=== PATIENT | female | born 1975 | race American Indian/Alaskan Native ===

== ENCOUNTER 2023-05-18 11:17 | Outpatient (OUT) | payer OTHER, SELFPAY ==
--- NOTE | 2023-05-18 11:19 | XR_ITS ---
The [address] [address] Patient Name: IAM ROQUE MRN: [id number] date: 1975 Sex: F Assigned Patient Location: [facility] Current Patient Location: [facility] Accession/Order Number: [id number] Exam Date: 05/18/2023 11:25 Report Date: 05/18/2023 11:41 At the request of: JEAN CLAUDE LOPEZ Procedure: XR ankle RT min 3V PROCEDURE: XR ankle RT min 3V HISTORY: RIGHT ANKLE PAIN COMPARISON: XR ankle right 04/27/2023 FINDINGS: BONES:Prosthetic replacement detail is. No hardware fracture or change in alignment. No bone fracture dislocation. SOFT TISSUES:Moderate soft tissue swelling. EFFUSION:None visible. OTHER: Negative. IMPRESSION: 1. Stable surgical changes and moderate soft tissue swelling. Electronically authenticated by: SCOOBY JIMÉNEZ Date: 05/18/2023 11:41
== END 2023-05-18 11:18 ==
LOC: RAD 11:17
PROVIDERS: PCP Student in an Organized Health Care Education/Training Program; Visit Provider Student in an Organized Health Care Education/Training Program
DX: M19.071 Primary osteoarthritis, right ankle and foot (principal)
CPT/HCPCS: 73610

== ENCOUNTER 2023-06-15 11:48 | Outpatient (OUT) | payer OTHER, SELFPAY ==
--- NOTE | 2023-06-15 11:41 | XR_ITS ---
[address] [address] Patient Name: IAM ROQUE MRN: [id number] date: 1975 Sex: F Assigned Patient Location: [facility] Current Patient Location: [facility] Accession/Order Number: [id number] Exam Date: 06/15/2023 11:41 Report Date: 06/15/2023 18:56 At the request of: BRIAN BRANNON Procedure: XR ankle RT min 3V PROCEDURE: XR ankle RT min 3V COMPARISON: HISTORY: RIGHT ANKLE PAIN FINDINGS: BONES:Stable talus arthroplasty. No acute fracture or dislocation or mechanical failure SOFT TISSUES:Moderate diffuse soft tissue swelling EFFUSION:Joint effusion OTHER: Negative. XR/XR ankle RT min 3V IMPRESSION: Soft tissue swelling. Electronically authenticated by: STEVEN THOMSON Date: 06/15/2023 18:56
== END 2023-06-15 11:49 | disposition home or self-care (01) ==
LOC: RAD 11:48
PROVIDERS: PCP Student in an Organized Health Care Education/Training Program; Visit Provider Podiatrist Foot & Ankle Surgery
DX: M87.071 Idiopathic aseptic necrosis of right ankle (principal)
CPT/HCPCS: 73610

== ENCOUNTER 2023-09-14 13:05 | Outpatient (OUT) | payer OTHER, SELFPAY ==
--- NOTE | 2023-09-14 | XR_ITS ---
The [address] [address] Patient Name: IAM ROQUE MRN: [id number] date: 1975 Sex: F Assigned Patient Location: [facility] Current Patient Location: [facility] Accession/Order Number: [id number] Exam Date: 09/14/2023 13:08 Report Date: 09/14/2023 14:59 At the request of: BRIAN BRANNON Procedure: XR ankle RT min 3V EXAM: XR ankle RT min 3V HISTORY: RIGHT ANKLE PAIN COMPARISON: This study was compared to the prior one dated 06/15/2023 There is status post right talus replacement. The alignment is anatomical. There is no acute fracture or dislocation. Stable few bone fragments, likely postoperative. There is increased intra-articular joint effusion in the talotibial joint. The interarticular joint spaces are preserved. Circumferential soft tissue swelling is noted. XR/XR ankle RT min 3V IMPRESSION: No acute finding. No significant interval change. Electronically authenticated by: SOFIA GOMEZ Date: 09/14/2023 14:59
== END 2023-09-14 13:06 | disposition home or self-care (01) ==
LOC: RAD 13:05
PROVIDERS: Visit Provider Podiatrist Foot & Ankle Surgery
DX: M24.571 Contracture, right ankle (principal)
CPT/HCPCS: 73610

== ENCOUNTER 2024-03-15 13:07 | Outpatient (OUT) | payer OTHER, SELFPAY ==
--- NOTE | 2024-03-15 | XR_ITS ---
The [address] [address] Patient Name: IAM ROQUE MRN: [id number] date: 1975 Sex: F Assigned Patient Location: Current Patient Location: Accession/Order Number: [id number] Exam Date: 03/15/2024 13:10 Report Date: 03/16/2024 08:06 At the request of: BRIAN BRANNON Procedure: XR ankle RT min 3V PROCEDURE: XR ankle RT min 3V HISTORY: RIGHT ANKLE PAIN COMPARISON: XR ankle right 09/14/2023 FINDINGS: BONES:Prior prosthetic replacement of the talus without evidence of hardware fracture or displacement. No bone fracture dislocation. Stable heterotopic bone formation distal to the medial malleolus. SOFT TISSUES:Anterior and lateral soft tissue thickening. EFFUSION:None visible. OTHER: Negative. XR/XR ankle RT min 3V IMPRESSION: 1. Total talus replacement without evidence of hardware failure or acute bone abnormality. 2. Thickened soft tissue anteriorly and laterally, but less than previously seen. Electronically authenticated by: SCOOBY JIMÉNEZ Date: 03/16/2024 08:06
== END 2024-03-15 13:08 | disposition home or self-care (01) ==
LOC: EC 13:07
PROVIDERS: Visit Provider Podiatrist Foot & Ankle Surgery
DX: M25.571 Pain in right ankle and joints of right foot (principal)
CPT/HCPCS: 73610

== ENCOUNTER 2024-04-13 09:58 | Outpatient (OUT) | payer OTHER, SELFPAY ==
--- NOTE | 2024-04-13 10:03 | ECG_ITS ---
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
--- NOTE | 2024-04-13 10:25 | XR_ITS ---
The [address] [address] Patient Name: IAM ROQUE MRN: [id number] date: 1975 Sex: F Assigned Patient Location: [facility] Current Patient Location: [facility] Accession/Order Number: [id number] Exam Date: 04/13/2024 10:44 Report Date: 04/13/2024 10:56 At the request of: BRIAN BRANNON Procedure: XR chest 2V PROCEDURE: XR chest 2V DATE: 04/13/2024 9:44 AM CDT COMPARISONS: 03/23/2023 CLINICAL INDICATION: 48 years Female Preop exam FINDINGS: The cardiomediastinal silhouette and pulmonary vasculature are within normal limits. The lungs are clear. There is no evidence of pleural effusion or pneumothorax. XR/XR chest 2V IMPRESSION: Chest radiograph is within normal limits. Electronically authenticated by: GALA LOPEZ Date: 04/13/2024 10:56
--- NOTE | 2024-04-13 10:45 | PM.PRESUREVA ---
History of Present Illness History of Present Illness Chief complaint: right ankle specified joint disorders Narrative: Patient presents for preadmission testing. The patient states she had a right ankle replacement in March 2023, she was doing well, but recently has noticed an increase in pain with certain movements of her ankle. She states the pain is relieved by rest, she is not currently taking any pain medication, she denies numbness, tingling, weakness, or any other complaints. Review of Systems ROS Narrative REVIEW OF SYSTEMS: Negative except as stated in HPI, ten or more systems reviewed. Constitutional: No fever , chills, weakness ENT: No sore throat or epistaxis Cardiovascular: No edema, chest pain, palpitations, or activity intolerance Respiratory: No shortness of breath, cough, or wheezing Gastrointestinal: No abdominal pain, constipation, diarrhea, or vomiting Genitourinary: No dysuria or hematuria Neurological: No numbness, tingling, weakness, or headache Psychiatric: No mood changes. [facility] Medical History (Updated 04/13/24 @ 10:49 by Jess Will NP) Arthritis of right ankle ?M19.071 - Primary osteoarthritis, right ankle and foot (ICD-10) Electronic cigarette use ?Z78.9 - Other specified health status (ICD-10) Ankle pain ?M25.579 - Pain in unspecified ankle and joints of unspecified foot (ICD-10) Other specified joint disorders, right ankle and foot ?M25.871 - Other specified joint disorders, right ankle and foot (ICD-10) GERD (gastroesophageal reflux disease) ?K21.9 - Gastro-esophageal reflux disease without esophagitis (ICD-10) Shingles ?B02.9 - Zoster without complications (ICD-10) Arthritis ?M19.90 - Unspecified osteoarthritis, unspecified site (ICD-10) Anemia ?D64.9 - Anemia, unspecified (ICD-10) Menopause ?Z78.0 - Asymptomatic menopausal state (ICD-10) Avascular necrosis of right talus ?M87.071 - Idiopathic aseptic necrosis of right ankle (ICD-10) Surgical History (Updated 04/13/24 @ 10:14 by Jess Will NP) History of ankle surgery ?Z98.890 - Other specified postprocedural states (ICD-10) H/O tooth extraction ?K08.409 - Partial loss of teeth, unspecified cause, unspecified class (ICD-10) H/O LEEP ?Z98.890 - Other specified postprocedural states (ICD-10) H/O colonoscopy ?Z98.890 - Other specified postprocedural states (ICD-10) H/O breast biopsy ?Z98.890 - Other specified postprocedural states (ICD-10) 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) ?Z96.669 - Presence of unspecified artificial ankle joint (ICD-10) Family History (Updated 04/13/24 @ 10:10 by Jess Will NP) Other Breast cancer Factor V deficiency Social History (Updated 04/13/24 @ 10:16 by Jess Will NP) Within the past year, how often did you have a drink containing alcohol: 4 or more times a week Within the past year, how many standard drinks containing alcohol did you have on a typical day: 5 or 6 Smoking status: Current every day smoker Do you use any of these nicotine containing products: vaping products Non-prescribed substance use: denies use 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 Highest level of school completed/degree received: high school graduate Meds Home Medications and Allergies Allergies Allergy/AdvReac Type Severity Reaction Status Date / Time No Known Drug Allergies Allergy Verified 04/13/24 10:16 Exam Narrative Exam Narrative: Constitutional: Awake, alert, comfortable, well-appearing, nontoxic, interactive, vital signs as charted Head: Normocephalic, atraumatic Neck: Supple, normal appearance, normal range of motion, no meningeal signs, no lymphadenopathy Respiratory: No respiratory distress, Rhonchi bilateral bases, cleared with cough Cardiovascular: Regular rate and rhythm, strong and regular heart tones Musculoskeletal: Normal gait, no swelling or edema, Anterior right ankle tenderness with palpation, pain is reproducible with ankle dorsiflexion, good capillary refill, sensation intact Skin: No rashes or induration, no lesions, only visible skin inspected Neuro: No neurological deficits, normal sensation Psychiatric: Oriented ?3, normal affect. Assessment and Plan Assessment and Plan (1) Avascular necrosis of right talus: (2) Other specified joint disorders, right ankle and foot: (3) Ankle pain: (4) Arthritis of right ankle: Plan Right ankle arthroscopy with possible arthrotomy scheduled with Dr. Flores April 27, 2024.
[2024-04-13 11:06] LABS: Basophils Absolute Auto 0.1 10^3/uL (0.0-0.1); Basophils Percent Auto 1.3 % (0.2-2.0); Eosinophils Absolute Auto 0.2 10^3/uL (0.0-0.7); Eosinophils Percent Auto 2.7 % (0.9-7.0); Hematocrit 48.8 % (36.0-48.0); Hemoglobin 16.6 g/dL (12.0-16.0); Immature Granulocytes Pct Auto 1.4 % (0.0-0.5); Lymphocytes Absolute Auto 2.2 10^3/uL (1.2-3.8); Lymphocytes Percent Auto 31.3 % (20.5-60.0); Mean Corpuscular Hemoglobin 34.5 pg (26.7-34.0); Mean Corpuscular Volume 101.5 fL (81.0-99.0); Mean Platelet Volume 10.4 fL (9.5-13.5); Monocytes Absolute Auto 0.5 10^3/uL (0.3-0.8); Monocytes Percent Auto 6.9 % (1.7-12.0); Neutrophils Absolute Auto 3.9 10^3/uL (1.4-6.5); Neutrophils Percent Auto 56.4 % (43.0-75.0); Platelet Count 250 10^3/uL (150-450); Red Blood Count 4.81 10^6/uL (4.20-5.40); Red Cell Distribution Width 13.6 % (11.0-15.0); White Blood Count 6.9 10^3/uL (4.0-11.0)
== END 2024-04-13 09:59 | disposition home or self-care (01) ==
LOC: PST 09:58
PROVIDERS: Visit Provider Podiatrist Foot & Ankle Surgery
DX: Z01.810 Encounter for preprocedural cardiovascular examination (principal); Z01.812 Encounter for preprocedural laboratory examination; Z01.818 Encounter for other preprocedural examination; M25.871 Other specified joint disorders, right ankle and foot; M19.071 Primary osteoarthritis, right ankle and foot
CPT/HCPCS: 71046; 85025; 93005; G0463

== ENCOUNTER 2024-04-28 09:31 | Observation (INO) | payer OTHER, SELFPAY ==
[2024-04-13 10:43] VITALS: BP 102/70; PULSE 94; TEMP 36.3; O2SAT 96; BMI 26.5
[2024-04-27] VITALS (38 sets, daily range): BP systolic 92–143; BP diastolic 63–83; PULSE 69–104; TEMP 36.4–36.7; O2SAT 92–100; BMI 26.5
--- OUTSIDE RECORDS SUMMARY | 2024-04-27 09:18 | XMS_ITS | CCD ---
Author Organization [facility] Care Team Providers Care Welding Process Specialist Name Role Phone None, No PCP Unavailable Unavailable Unavailable Unavailable Renata, Dr. Wahl Attending Unavailable Feighan, Dr. Sarthak Anderson Attending Rosario PENNY, Dr. VISH MERCADO Referring Genavai lable Unavailable Primary Care Provider Bruce THOMSON, DR STEVEN Khan Consulting Unavailable BRIAN BRANNON Admitting Unavailable BRIAN BRANNON Attending Unavailable BRIAN BRANNON Consulting Unavailable BRIAN BRANNON Consulting Unavailable BRIAN BRANNON Admitting Unavailable BRIAN BRANNON Attending Unavailable JASMINE ARENAS Consulting Unavailable VALENCIA, STUART Consulting Unavailable HOY ., DR ALONZO Admitting Unavailable HOY ., DR ALONZO Attending Unavailable HOY ., DR ALONZO Consulting Unavailable TINO, DR SCOOBY De Jesus Consulting Unavailable BRIAN BRANNON Consulting Unavailable BRIAN BRANNON Procedure Practitioner Unajudy LOPEZ .JEAN CLAUDE Consulting Unavailable VISH PALMER Consulting Unavailable BRIAN SMITH Unavailable BRIAN BRANNON Admitting Unavailable TINO, DR SCOOBY De Jesus Consulting Unavailable BRIAN BRANNON Attending Unavailable BRIAN BRANNON Consulting Unavailable TINO, DR SCOOBY De Jesus Consulting Unavailable BLESSING BRANDON Admitting Unavailable BLESSING BRANDON Attending Unavailable BLESSING BRANDON Consulting Unavailable KOLE, NICKIE Primary Care Unavailable JESSICAJEAN CLAUDE Referring Unavailable SARTHAK HERNANDEZ Referring Unavailable KOLE, NICKIE Primary Care Unavailable JEAN CLAUDE LOPEZ Referring Unavailable KOLE, NICKIE Primary Care Unavailable JEAN CLAUDE LOPEZ Referring Unavailable JEAN CLAUDE LOPEZ Referring Unavailable KOLE, NICKIE Primary Care Unavailable JEAN CLAUDE LOPEZ Referring Unavailable KOLE, NICKIE Primary Care Unavailable JESSICAJEAN CLAUDE Referring Unavailable KOLE, NICKIE Primary Care Unavailable JEAN CLAUDE LOPEZ Referring Unavailable KOLE, NICKIE Primary Care Unavailable KOLE, NICKIE Primary Care Unavailable JEAN CLAUDE LOPEZ Referring Unavailable KOLE, NICKIE Primary Care Unavailable JEAN CLAUDE LOPEZ Referring Unavailable KOLE, NICKIE Primary Care Unavailable JEAN CLAUDE LOPEZ Referring Unavailable KOLE, NICKIE Primary Care Unavailable JEAN CLAUDE LOPEZ Referring Unavailable Nickie Mortensen MD Primary Care Provider Medications Completed/Discontinued Medications Medication Drug Class(es) Dates Sig (Normalized) Sig (Original) celecoxib 200 mg oral capsule (5 sources) Nonsteroidal Anti-inflammatory Drug Start: 12-09-2022 take 1 capsule by mouth once daily as needed Celecoxib 200 MG Oral Capsule TAKE 1 CAPSULE DAILY NEEDED. Quantity: 30 Refills: 2 Ordered: 09-Dec-2022 Vish Penny MD Start : 09-Dec-2022 Active omeprazole 20 mg / sodium bicarbonate 1100 mg oral capsule (3 sources) Proton Pump Inhibitor Start: 12-28-2022 Zegerid 20-1100 MG Oral Capsule Quantity: 0 Refills: 0 Ordered: 28-Dec-2022 DO Start : 28-Dec-2022 Active Problems Active Problems Problem Classification Problem Date Documented Date Episodic/Chronic Deficiency and other anemia (1 source) Anemia, unspecified; Translations: [ANEMIA UNSPECIFIED] Onset: 04-13-2023 Episodic Esophageal disorders (1 source) Gastro-esophageal reflux disease without esophagitis; Translations: [GERD WITHOUT ESOPHAGITIS] Onset: 04-13-2023 Chronic Osteoarthritis (15 sources) Primary osteoarthritis, right ankle and foot; Translations: [Disorder of ankle joint] Onset: 12-09-2022 Chronic Other acquired deformities (3 sources) Contracture, right ankle; Translations: [CONTRACTURE RIGHT ANKLE] Onset: 04-13-2023 Chronic Other aftercare (1 source) Other residential (current) drug therapy; Translations: [OTH ENERGY CONSERVATION TECHNICIAN CURRENT DRUG THERAPY] Onset: 04-13-2023 Episodic Other bone disease and musculoskeletal deformities (3 sources) Avascular necrosis of bone; Translations: [Aseptic necrosis of bone, site unspecified] Chronic Other bone disease and musculoskeletal deformities (1 source) Osteochondritis dissecans; 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] Chronic Other bone disease and musculoskeletal deformities (3 sources) Osteonecrosis, unspecified; Translations: [OSTEONECROSIS UNSPECIFIED] Onset: 02-17-2023 Chronic Other bone disease and musculoskeletal deformities (2 sources) Idiopathic aseptic necrosis of right ankle; Translations: [IDIOPATH ASEPTIC NECROSIS RT ANKLE] Onset: 03-27-2023 Chronic Other bone disease and musculoskeletal deformities (1 source) Idiopathic aseptic necrosis of unspecified bone; 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] Onset: 01-06-2023 Chronic Other circulatory disease (1 source) Hypotension, unspecified; Translations: [HYPOTENSION UNSPECIFIED] Onset: 04-13-2023 Episodic Other circulatory disease (4 sources) Other specified symptoms and signs involving the circulatory and respiratory systems; Translations: [OTH SPEC SX SIGNS INVLV CIRC RS] Onset: 02-10-2023 Episodic Other connective tissue disease (3 sources) H/O: arthritis; Translations: [Personal history of arthritis] Episodic Other non-traumatic joint disorders (5 sources) Ankle pain; Translations: [Pain in joint, ankle and foot] Episodic Other non-traumatic joint disorders (1 source) Other instability, right ankle; Translations: [OTHER INSTABILITY RIGHT ANKLE] Onset: 04-13-2023 Episodic Residual codes; unclassified (1 source) Other specified postprocedural states; Translations: [OTH SPECIFIED POSTPROCEDURAL STATES] Onset: 04-13-2023 Episodic Residual codes; unclassified (1 source) Family history of malignant neoplasm of breast; Translations: [FAMILY HX MALIG NEOPLASM OF BREAST] Onset: 04-13-2023 Episodic Residual codes; unclassified (1 source) Family history of diseases of the blood and blood-forming organs and certain disorders involving the immune mechanism; Translations: [FAM HX DZ BLOOD AND BFO D/O IMMUNE [facility]] Onset: 04-13-2023 Episodic Screening and history of mental health and substance abuse codes (1 source) Personal history of nicotine dependence; Translations: [PERSONAL HISTORY OF NICOTINE DEPEND] Onset: 04-13-2023 Episodic Substance-related disorders (1 source) Nicotine dependence, other tobacco product, uncomplicated; Translations: [NICOTINE DEPEND OTH TOB PROD UNCOMP] Onset: 03-27-2023 Chronic Unclassified (1 source) ALCOHOL USE UNSPEC UNCOMPLICATED; Translations: [ALCOHOL USE UNSPEC UNCOMPLICATED] Onset: 04-13-2023 Past or Other Problems Problem Classification Problem Date Documented Da te Episodic/Chronic Other connective tissue disease (1 source) Pain in right foot; Translations: [PAIN IN RIGHT FOOT] Onset: 01-23-2023 Episodic Other connective tissue disease (1 source) Pain in left foot; Translations: [PAIN IN LEFT FOOT] Onset: 01-23-2023 Episodic Other non-traumatic joint disorders (4 sources) Pain in right ankle and joints of right foot; Translations: [PAIN IN RIGHT ANKLE] Onset: 01-20-2023 Episodic Other non-traumatic joint disorders (1 source) Pain in left ankle and joints of left foot; Translations: [PAIN IN LEFT ANKLE] Onset: 01-23-2023 Episodic Results Test Name Value Interpretation Reference Range Facility CBC AUTO DIFFon 04-05-2023 BASO # 0.1 103/ul Normal 0.0-0.1 [facility] Comment on above: Performed By: #### C BC #### [facility] [address] [place] [address] Dr. Lissy Valera Basophils/100 WBC (Bld) 0.8 % Normal 0.2-2.0 [facility] Comment on above: Performed By: #### C BC #### [facility] [address] [place] [address] Dr. Lissy Valera EO # 0.4 103/ul Normal 0.0-0.7 [facility] Comment on above: Performed By: #### C BC #### [facility] [address] [place] [address] Dr. Lissy Valera Eosinophils/100 WBC (Bld) 5.0 % Normal 0.9-7.0 [facility] Comment on above: Performed By: #### C BC #### [facility] [address] [place] [address] Dr. Lissy Valera Erythrocyte distribution width (RBC) [Ratio] 12.5 % Normal 11.0-15.0 [facility] Comment on above: Performed By: #### C BC #### [facility] [address] [place] [address] Dr. Lissy Valera Hematocrit (Bld) [Volume fraction] 40.3 % Normal 36.0-48.0 [facility] Comment on above: Performed By: #### C BC #### [facility] [address] [place] [address] Dr. Lissy Valera Hemoglobin (Bld) [Mass/Vol] 13.1 g/dL Normal 12.0-16.0 [facility] Comment on above: Performed By: #### C BC #### [facility] [address] [place] [address] Dr. Lissy Valera IG # 0.03 10e3/ul Normal 0.00-0.03 [facility] Comment on above: Performed By: #### C BC #### [facility] [address] [place] [address] Dr. Lissy aVlera IG % 0.4 % Normal 0.0-0.5 [facility] Comment on above: Performed By: #### C BC #### [facility] [address] [place] [address] Dr. Lissy Valera LYMPH # 3.0 103/ul Normal 1.2-3.8 [facility] Comment on above: Performed By: #### C BC #### [facility] [address] [place] [address] Dr. Lissy Valera Lymphocytes/100 WBC (Bld) 36.2 % Normal 20.5-60.0 [facility] Comment on above: Performed By: #### C BC #### [facility] [address] [place] [address] Dr. Lissy Valera MANUAL DIFF REQ NO Normal [facility] Comment on above: Performed By: #### C BC #### [facility] [address] [place] [address] Dr. Lissy Valera MCH (RBC) [Entitic mass] 33.2 pg Normal 26.7-34.0 [facility] Comment on above: Performed By: #### C BC #### [facility] [address] [place] [address] Dr. Lissy Valera MCHC (RBC) [Mass/Vol] 32.5 g/dL Normal 29.9-35.2 [facility] Comment on above: Performed By: #### C BC #### [facility] [address] [address] [address] Lissy Valera MCV (RBC) [Entitic vol] 102.3 fL Critically high 81.0-99.0 [facility] Comment on above: Performed By: #### C BC #### [facility] [address] [address] [address] Lissy Valera MONO # 0.8 103/ul Normal 0.3-0.8 [facility] Comment on above: Performed By: #### C BC #### [facility] [address] [address] [address] Lissy Valera Monocytes/100 WBC (Bld) 9.7 % Normal 1.7-12.0 [facility] Comment on above: Performed By: #### C BC #### [facility] [address] [address] [address] Lissy Valera NEUT # 4.0 103/ul Normal 1.4-6.5 [facility] Comment on above: Performed By: #### C BC #### [facility] [address] [address] [address] Lissy Valera Neutrophils/100 WBC (Bld) 47.9 % Normal 43.0-75.0 [facility] Comment on above: Performed By: #### C BC #### [facility] [address] [address] [address] Lissy Valera Platelet mean volume (Bld) [Entitic vol] 9.4 fL Critically low 9.5-13.5 [facility] Comment on above: Performed By: #### C BC #### [facility] [address] [address] [address] Lissy Valera PLT 270 103/ul Normal 150-450 [facility] Comment on above: Performed By: #### C BC #### [facility] [address] [place] [address] Dr. Lissy Valera RBC 3.94 106/ul Critically low 4.20-5.40 [facility] Comment on above: Performed By: #### C BC #### [facility] [address] [address] [address] Lissy Valera WBC 8.3 103/ul Normal 4.0-11.0 [facility] Comment on above: Performed By: #### C BC #### [facility] [address] [address] [address] Lissy Valera POINT OF CARE GLUCOSEon 05-0 Glucose [Mass/Vol] 137 mg/dL Critically high 74-[address] [facility] Comment on above: Performed By: #### P OCGLUC ####[facility] [id number] [id number]. Lissy Valera Glucose [Mass/Vol] 110 mg/dL Critically high -[address] [facility] Comment on above: Performed By: #### P OCGLUC ####[facility] [address] [address]Dr. Lsisy Valera CBC AUTO DIFFon 03-23-2023 BASO # 0.1 103/ul Normal 0.0-0.1 [facility] Comment on above: Performed By: #### C BC #### [facility] [address] [place] [address] Dr. Lissy Valera Basophils/100 WBC (Bld) 0.8 % Normal 0.2-2.0 [facility] Comment on above: Performed By: #### C BC #### [facility] [address] [place] [address] Dr. Lissy Valera EO # 0.3 103/ul Normal 0.0-0.7 [facility] Comment on above: Performed By: #### C BC #### [facility] [address] [place] [address] Dr. Lissy Valera Eosinophils/100 WBC (Bld) 3.6 % Normal 0.9-7.0 [facility] Comment on above: Performed By: #### C BC #### [facility] [address] [place] [address] Dr. Lissy Valera Erythrocyte distribution width (RBC) [Ratio] 12.8 % Normal 11.0-15.0 [facility] Comment on above: Performed By: #### C BC #### [facility] [address] [place] [address] Dr. Lissy Valera Hematocrit (Bld) [Volume fraction] 41.0 % Normal 36.0-48.0 [facility] Comment on above: Performed By: #### C BC #### [facility] [address] [place] [address] Dr. Lissy Valera Hemoglobin (Bld) [Mass/Vol] 13.5 g/dL Normal 12.0-16.0 [facility] Comment on above: Performed By: #### C BC #### [facility] [address] [place] [address] Dr. Lissy Valera IG # 0.04 10e3/ul Critically high 0.00-0.03 [facility] Comment on above: Performed By: #### C BC #### [facility] [address] [place] [address] Dr. Lissy Valera IG % 0.4 % Normal 0.0-0.5 [facility] Comment on above: Performed By: #### C BC #### [facility] [address] [place] [address] Dr. Lissy Valera LYMPH # 2.4 103/ul Normal 1.2-3.8 [facility] Comment on above: Performed By: #### C BC #### [facility] [address] [place] [address] Dr. Lissy Valera Lymphocytes/100 WBC (Bld) 26.5 % Normal 20.5-60.0 [facility] Comment on above: Performed By: #### C BC #### [facility] [address] [place] [address] Dr. Lissy Valera MANUAL DIFF REQ NO Normal [facility] Comment on above: Performed By: #### C BC #### [facility] [address] [place] [address] Dr. Lissy Valera MCH (RBC) [Entitic mass] 33.5 pg Normal 26.7-34.0 [facility] Comment on above: Performed By: #### C BC #### [facility] [address] [place] [address] Dr. Lissy Valera MCHC (RBC) [Mass/Vol] 32.9 g/dL Normal 29.9-35.2 [facility] Comment on above: Performed By: #### C BC #### [facility] [address] [address] [address] Lissy Valera MCV (RBC) [Entitic vol] 101.7 fL Critically high 81.0-99.0 [facility] Comment on above: Performed By: #### C BC #### [facility] [address] [place] [address] Dr. Lissy Valera MONO # 0.8 103/ul Normal 0.3-0.8 [facility] Comment on above: Performed By: #### C BC #### [facility] [address] [place] [address] Dr. Lissy Valera Monocytes/100 WBC (Bld) 8.4 % Normal 1.7-12.0 [facility] Comment on above: Performed By: #### C BC #### [facility] [address] [place] [address] Dr. Lissy Valera NEUT # 5.4 103/ul Normal 1.4-6.5 [facility] Comment on above: Performed By: #### C BC #### [facility] [address] [place] [address] Dr. Lissy Valera Neutrophils/100 WBC (Bld) 60.3 % Normal 43.0-75.0 [facility] Comment on above: Performed By: #### C BC #### [facility] [address] [place] [address] Dr. Lissy Valera Platelet mean volume (Bld) [Entitic vol] 9.3 fL Critically low 9.5-13.5 [facility] Comment on above: Performed By: #### C BC #### [facility] [address] [place] [address] Dr. Lissy Valera PLT 295 103/ul Normal 150-450 [facility] Comment on above: Performed By: #### C BC #### [facility] [address] [place] [address] Dr. Lissy Valera RBC 4.03 106/ul Critically low 4.20-5.40 [facility] Comment on above: Performed By: #### C BC #### [facility] [address] [address] [address] Lissy Valera WBC 8.9 103/ul Normal 4.0-11.0 [facility] Comment on above: Performed By: #### C BC #### [facility] [address] [address] [address] Lissy Valera PROF CHEM 8 (BAS METB)on Anion gap [Moles/Vol] 12.7 mmol/L Normal [facility] Comment on above: Performed By: #### B MP ####[facility] [address] [address]DrEmelyn Valera Calcium [Mass/Vol] 9.7 mg/dL Normal 8.5-10.[address] [facility] Comment on above: Performed By: #### B MP ####[facility] [address] [address]DrEmelyn Valera Chloride [Moles/Vol] 103 mmol/L Normal 98-107 [facility] Comment on above: Performed By: #### B MP ####[facility] [address] [address]DrEmelyn Valera CO2 [Moles/Vol] 27.5 mmol/L Normal 21.0-32.0 [facility] Comment on above: Performed By: #### B MP ####[facility] [address] [address]DrEmelyn Valera Creatinine [Mass/Vol] 0.66 mg/dL Normal 0.55-1.02 [facility] Comment on above: Performed By: #### B MP ####[facility] [address] [address]DrEmelyn Valera EGFR-AF CHILEAN >60 Normal >=60 [facility] Comment on above: Performed By: #### B MP ####[facility] [address] [address]DrEmelyn Valera EGFR-NON AF CHILEAN >60 Normal >=60 [facility] Comment on above: Performed By: #### B MP ####[facility] [address] [id number]. Lissy Valera Glucose [Mass/Vol] 98 mg/dL Normal 74-106 [facility] Comment on above: Performed By: #### B MP ####[facility] [address] [id number]. Lissy Soto Potassium [Moles/Vol] 4.2 mmol/L Normal 3.5-5.1 [facility] Comment on above: Performed By: #### B MP ####[facility] [address] [address]Dr. Lissy Soto Sodium [Moles/Vol] 139 mmol/L Normal 136-145 [facility] Comment on above: Performed By: #### B MP ####[facility] [address] [address]Dr. Lissy Soto Urea nitrogen [Mass/Vol] 15.0 mg/dL Normal 7.0-18.0 [facility] Comment on above: Performed By: #### B MP ####[facility] [address] [address]Dr. Lissy Soto Urea nitrogen/Creatinin e [Mass ratio] 22.7 mg/mg Normal [facility] Comment on above: Performed By: #### B MP ####[facility] [address] [id number]. Lissy Valera XR CHEST 2 Von 03-23-2023 XR CHEST 2 V EXAMINATION: XR CHES T 2 V, 03/23/2023 10:30 AM EDT HISTORY: Electronic cigarette user COMPARISON: None. TECHNIQUE: Chest x-ray: Two views. FINDINGS: No focal consolidations or pleural effusions. Cardiomediastinal silhouette is unremarkable. Visualized osseous structures are unremarkable. IMPRESSION: No acute disease. Electronically authenticated by: STUART BIRMINGHAM Date: 2023-03-23 11:19 Normal [facility] CT ANKLE LT WO CONon 023 CT ANKLE LT WO CON EXAMINATION: CT ANKL E RT WO CON, CT ANKLE LT WO CON HISTORY: Avascular necrosis of bone COMPARISON: No relevant comparison available. TECHNIQUE: Multi-planar CT images were created without IV contrast. Dose reduction techniques were achieved by using automated exposure control and/or adjustment of mA and/or kV according to patient size and/or use of iterative reconstruction technique. RIGHT: FINDINGS: BONES: Comminuted intra-articular fracture of the talus with marginal heterotopic ossification sclerosis and extensive nonunion. Partial collapse of the talus is noted. Moderate degenerative changes of the ankle. Permeative pattern of the bones consistent with osteopenia. Mild enthesopathic spurring of the patella at the quadriceps insertion. SOFT TISSUES: Negative. No visible soft tissue swelling. EFFUSION: Ankle joint effusion OTHER: Negative. IMPRESSION: Comminuted complex partially depressed intra-articular fracture of the talus with underlying diffuse osteopenia LEFT: FINDINGS: BONES: No acute fracture, dislocation, avascular necrosis or significant degenerative change. Minimal enthesopathic spurring of the patella at the quadriceps insertion partially visualized. Minimal plantar enthesopathic spurring of the calcaneus. SOFT TISSUES: Negative. No visible soft tissue swelling. EFFUSION: None visible. OTHER: Negative. IMPRESSION: No acute abnormality Electronically authenticated by: STEVEN THOMSON Date: 2023-02-10 10:29 Normal [facility] XR ANKLE TONY MIN 3 VIEWSon 0 01-21-2023 XR ANKLE TONY MIN 3 VIEWS EXAMINATION: XR ANKLE TONY MIN 3 VIEWS, XR FOOT TONY MIN 3 VIEWS HISTORY: Bilateral ankle joint pain ; chronic right ankle pain; possible talus replacement; left side comparison COMPARISON: No relevant comparison available. FINDINGS: RIGHT FINDINGS: BONES: Collapse of the talar dome and increased sclerosis. No appreciable articular surface irregularity of the tibial plafond. Unremarkable calcaneus, talus, midfoot, and forefoot structures. SOFT TISSUES: Moderate soft tissue swelling surrounding the ankle, greatest along lateral aspect. OTHER: Negative. LEFT FINDINGS: BONES: No significant arthropathy or acute abnormality. SOFT TISSUES: No visible soft tissue swelling. OTHER: Negative. IMPRESSION: RIGHT CONCLUSION: Destruction/collapse of the talar dome with intact appearing tibial plafond. LEFT CONCLUSION: Unremarkable left ankle and foot. Electronically authenticated by: SCOOBY JIMÉNEZ Date: 2023-01-21 10:22 Normal [facility] MRI ANKLE RIGHT WO CONTRASTo n 01-08-2023 Avascular necrosis involving the majority of the talus with comminuted intra-articular fracture involving the tibiotalar joint and posterior subtalar joint. Additional findings as detailed. RECOMMENDATIONS: Unavailable [facility] RADIOLOGY EXAMINATION: MRI OF THE RIGHT ANKLE WITHOUT CONTRAST, 01/06/2023 11:31 am TECHNIQUE: Multiplanar multisequence MRI of the right ankle was performed without the administration of intravenous contrast. COMPARISON: None. HISTORY: ORDERING SYSTEM PROVIDED HISTORY: Idiopathic avascular necrosis (HCC) TECHNOLOGIST PROVIDED HISTORY: What is the sedation requirement?->None What reading provider will be dictating this exam?->CRC FINDINGS: SYNDESMOTIC LIGAMENTS: Appear intact. No significant periligamentous edema or interval widening. LATERAL COLLATERAL LIGAMENT COMPLEX: Poorly visualized secondary to motion artifact on the axial sequences. Suspect full-thickness anterior talofibular ligament and calcaneofibular ligament tears as no intact fibers are definitively identified. Clinical correlation is recommended. Posterior tibiofibular ligament appears intact but demonstrates abnormal signal likely representing prior injury scarring or sprain. DELTOID LIGAMENT COMPLEX: Abnormal signal of the deep fibers likely representing ligament sprain and/or low-grade partial tearing. Superficial fibers appear intact. SINUS TARSI AND SPRING LIGAMENT: Sinus tarsi fat is preserved. Spring ligament appears intact. MEDIAL TENDONS: Intact posterior tibial tendon, flexor digitorum and flexor hallucis longus tendons. LATERAL TENDONS: Intact peroneus brevis and longus tendons. EXTENSOR TENDONS: Intact. ACHILLES TENDON: The Achilles tendon is normal in position, morphology and signal. No associated bursitis. PLANTAR FASCIA: Intact and without thickening or nodularity. TARSAL TUNNEL: No space-occupying lesion. BONE MARROW: Comminuted fracture and osseous destruction of the talus with a few scattered areas of mild bone marrow edema but predominantly hypointense T2 signal throughout the majority of the talus. There is significant hypointense T1 signal of the majority of the talus. Fracture extends into the subchondral cortex at the articulation of the tibia with talus as well as into the subchondral cortex at the posterior subtalar joint. There are several areas of cortical collapse of the talar dome. Multiple partial and full-thickness cartilage defects of the talar dome and tibial plafond. OTHER: Small ankle joint effusion with a few scattered loose bodies the largest of which is located anteroinferior to the tip of the lateral malleolus and measures approximately 3.5 cm. A few small scattered patchy foci of bone marrow edema within the distal tibia, calcaneus, and of the midfoot is nonspecific and may be due to disuse osteopenia or altered biomechanics. [facility] RADIOLOGY Nawaf Villanueva DO - 01/08/2023 EXAMINATION: MRI OF THE RIGHT ANKLE WITHOUT CONTRAST, 01/06/2023 11:31 am TECHNIQUE: Multiplanar multisequence MRI of the right ankle was performed without the administration of intravenous contrast. COMPARISON: None. HISTORY: ORDERING SYSTEM PROVIDED HISTORY: Idiopathic avascular necrosis (HCC) TECHNOLOGIST PROVIDED HISTORY: What is the sedation requirement?->None What reading provider will be dictating this exam?->CRC FINDINGS: SYNDESMOTIC LIGAMENTS: Appear intact. No significant periligamentous edema or interval widening. LATERAL COLLATERAL LIGAMENT COMPLEX: Poorly visualized secondary to motion artifact on the axial sequences. Suspect full-thickness anterior talofibular ligament and calcaneofibular ligament tears as no intact fibers are definitively identified. Clinical correlation is recommended. Posterior tibiofibular ligament appears intact but demonstrates abnormal signal likely representing prior injury scarring or sprain. DELTOID LIGAMENT COMPLEX: Abnormal signal of the deep fibers likely representing ligament sprain and/or low-grade partial tearing. Superficial fibers appear intact. SINUS TARSI AND SPRING LIGAMENT: Sinus tarsi fat is preserved. Spring ligament appears intact. MEDIAL TENDONS: Intact posterior tibial tendon, flexor digitorum and flexor hallucis longus tendons. LATERAL TENDONS: Intact peroneus brevis and longus tendons. EXTENSOR TENDONS: Intact. ACHILLES TENDON: The Achilles tendon is normal in position, morphology and signal. No associated bursitis. PLANTAR FASCIA: Intact and without thickening or nodularity. TARSAL TUNNEL: No space-occupying lesion. BONE MARROW: Comminuted fracture and osseous destruction of the talus with a few scattered areas of mild bone marrow edema but predominantly hypointense T2 signal throughout the majority of the talus. There is significant hypointense T1 signal of the majority of the talus. Fracture extends into the subchondral cortex at the articulation of the tibia with talus as well as into the subchondral cortex at the posterior subtalar joint. There are several areas of cortical collapse of the talar dome. Multiple partial and full-thickness cartilage defects of the talar dome and tibial plafond. OTHER: Small ankle joint effusion with a few scattered loose bodies the largest of which is located anteroinferior to the tip of the lateral malleolus and measures approximately 3.5 cm. A few small scattered patchy foci of bone marrow edema within the distal tibia, calcaneus, and of the midfoot is nonspecific and may be due to disuse osteopenia or altered biomechanics. 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 Additional findings as detailed. RECOMMENDATIONS: Unavailable [employer] Phone: MRI ANKLE RIGHT WO CONTRASTO rdered By: Nawaf Villanueva on 01-08-2023 [employer] Phone: MRI ANKLE RIGHT WO CONTRASTo n 01-06-2023 MRI ANKLE RIGHT WO CONTRAST EXAMINATION: MRI OF THE RIGHT ANKLE WITHOUT CONTRAST, 01/06/2023 11:31 am TECHNIQUE: Multiplanar multisequence MRI of the right ankle was performed without the administration of intravenous contrast. COMPARISON: None. HISTORY: ORDERING SYSTEM PROVIDED HISTORY: Idiopathic avascular necrosis (HCC) TECHNOLOGIST PROVIDED HISTORY: What is the sedation requirement?->None What reading provider will be dictating this exam?->CRC FINDINGS: SYNDESMOTIC LIGAMENTS: Appear intact. No significant periligamentous edema or interval widening. LATERAL COLLATERAL LIGAMENT COMPLEX: Poorly visualized secondary to motion artifact on the axial sequences. Suspect full-thickness anterior talofibular ligament and calcaneofibular ligament tears as no intact fibers are definitively identified. Clinical correlation is recommended. Posterior tibiofibular ligament appears intact but demonstrates abnormal signal likely representing prior injury scarring or sprain. DELTOID LIGAMENT COMPLEX: Abnormal signal of the deep fibers likely representing ligament sprain and/or low-grade partial tearing. Superficial fibers appear intact. SINUS TARSI AND SPRING LIGAMENT: Sinus tarsi fat is preserved. Spring ligament appears intact. MEDIAL TENDONS: Intact posterior tibial tendon, flexor digitorum and flexor hallucis longus tendons. LATERAL TENDONS: Intact peroneus brevis and longus tendons. EXTENSOR TENDONS: Intact. ACHILLES TENDON: The Achilles tendon is normal in position, morphology and signal. No associated bursitis. PLANTAR FASCIA: Intact and without thickening or nodularity. TARSAL TUNNEL: No space-occupying lesion. BONE MARROW: Comminuted fracture and osseous destruction of the talus with a few scattered areas of mild bone marrow edema but predominantly hypointense T2 signal throughout the majority of the talus. There is significant hypointense T1 signal of the majority of the talus. Fracture extends into the subchondral cortex at the articulation of the tibia with talus as well as into the subchondral cortex at the posterior subtalar joint. There are several areas of cortical collapse of the talar dome. Multiple partial and full-thickness cartilage defects of the talar dome and tibial plafond. OTHER: Small ankle joint effusion with a few scattered loose bodies the largest of which is located anteroinferior to the tip of the lateral malleolus and measures approximately 3.5 cm. A few small scattered patchy foci of bone marrow edema within the distal tibia, calcaneus, and of the midfoot is nonspecific and may be due to disuse osteopenia or altered biomechanics. 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 Additional findings as detailed. RECOMMENDATIONS: Unavailable Interpreted by: Nawaf Villanueva DO Signed by: Nawaf Villanueva DO 01/08/23 Final result Normal [facility] Radiology Study observation (narrative) [facility] Work Phone: Radiologyon 01-06-2023 MR Ankle - right WO contrast Normal -[facility] Work Phone: Initial Visit (Orthopaedic S urgery)on 12-28-2022 Initial Visit (Orthopaedic Surgery) Diagnoses/Problems Assessed Avascular necrosis (733.40) (M87.00) History of arthritis (V13.4) (Z87.39) No history of surgery Family history of arthritis (V17.7) (Z82.61) : Mother Family history of malignant neoplasm (V16.9) (Z80.9) : Father Current every day smoker (305.1) (F17.200) Ankle arthritis (716.97) (M19.079) 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 : No Is the patient or breast feeding? : No What are the patient's signs and symptoms? : pain SocHx: Current every day smoker Tobacco Use Screening; Status:Complete; Done: 28Dec2022 Chief Complaint Right ankle History of Present Illness 47 female here for right ankle pain. Longstanding issue of pain in the right ankle. Has old notes and MRI reports from previous evaluation in [place]. 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 Is increasing pain and swelling during the day. No diabetes. Non-smoker. Has had increased pain over the past year. On exam: WD/WN thin female A+O X3 NAD No lymphedema Inspection of both feet and ankles show symmetric arches. Moderate swelling about right ankle. Plantigrade foot. Limited ankle and subtalar motion on right. Good motion at midfoot. 5/5 strength in all 4 planes. Sensation intact to LT. Good pulses. Stable anterior drawer. No peroneal subluxation. (-) [place]old. I personally reviewed the following radiographic exams: Previous MRI report of right ankle from over 3 years ago's shows some geographic changes of the talus consistent with avascular necrosis. X-rays of right ankle today shows a very sclerotic talar body with a possible fracture line near the lateral process near the neck. Has a normal talar head towards the talonavicular joint. He has collapse of the tibiotalar and subtalar joint. Assessment: Right talar body avascular necrosis possible stress fracture talar neck. Plan: Discussed nonoperative and operative options in detail. Risk and benefits discussed in detail. All questions answered today. Recovery timeline and expectations discussed in detail. Is not a candidate for ankle replacement because of the involvement of the talar body. Recommend repeat MRI to evaluate the vascularity of the body and possible fracture. Discussed likely hindfoot fusion with the nail with allograft femoral head and bone marrow. Discussed postop recovery. Discussed option of referral to the [facility] if she wants to discuss total talus replacement. Review of Systems Constitutional: no fever, no chills, not feeling tired, no recent weight gain and no recent weight loss. ENT: no nosebleeds. Cardiovascular: no chest pain. Respiratory: no shortness of breath and no cough. Gastrointestinal: no abdominal pain, no nausea, no vomiting and no diarrhea. Musculoskeletal: no arthralgias and as noted in HPI. Integumentary: no rashes and no skin wound. Neurological: no headache. Psychiatric: no depression and no sleep disturbances. Endocrine: no muscle weakness and no muscle cramps. Hematologic/Lymphatic: no swollen glands and no tendency for easy bruising. All other systems have been reviewed and are negative for complaint. Active Problems Problems Ankle pain (719.47) (M25.579) Past Medical History Problems History of arthritis (V13.4) (Z87.39) Surgical History Problems No history of surgery Family History Mother Family history of arthritis (V17.7) (Z82.61) Father Family history of malignant neoplasm (V16.9) (Z80.9) Social History Problems Current every day smoker (305.1) (F17.200) Allergies No Known Drug Allergies Recorded By: Holly Duong; 12/09/2022 9:13:32 AM Current Meds Medication NameInstruction Celecoxib 200 MG Oral CapsuleTAKE 1 CAPSULE DAILY NEEDED. Zegerid 20-1100 MG Oral Capsule Vitals Vital Signs Recorded: 28Dec2022 02:57PM Height5 ft 2 in Frxrvg744 lb BMI Vwvgcaaaak26.53 kg/m2 BSA Calculated1.72 Results/Data Xray Ankle 3 [id number] 08:56AMVish Penny Test NameResultFlagReference Xray Ankle 3 View(Report) FINAL REPORT Interpreted by: VISH PENNY JAMES, MD 12/09/22 09:37 Patient Name: DINORA NAVA STUDY: ANKLE, COMPLETE, MIN 3 VIEWS; Right; 12/09/2022 8:56 am INDICATION: pain M25.579: Ankle pain. ACCESSION NUMBER(S): [id number] ORDERING CLINICIAN: VISH PENNY FINDINGS: AP lateral oblique views of the right ankle show moderate to severe degenerative change throughout the ankle joint with talar collapse noted on lateral view. Questionable AVN as well. (more content not included)... Normal [facility] ANKLE, COMPLETE, MIN 3 VIEWS on 12-09-2022 ANKLE, COMPLETE, MIN 3 VIEWS Patient Name: DINORA NAVA STUDY: ANKLE, COMPLETE, MIN 3 VIEWS; Right; 12/09/2022 8:56 am INDICATION: pain M25.579: Ankle pain. ACCESSION NUMBER(S): [id number] ORDERING CLINICIAN: VISH PENNY FINDINGS: AP lateral oblique views of the right ankle show moderate to severe degenerative change throughout the ankle joint with talar collapse noted on lateral view. Questionable AVN as well. Bone spurring throughout the ankle joint including posteriorly is evident. Electronically signed by: VISH PENNY MD Normal [facility] Initial Visit (Orthopaedic S urgery)on 12-09-2022 Initial Visit (Orthopaedic Surgery) Diagnoses/Problems Assessed Ankle pain (719.47) (M25.579) Orders Ankle pain Start: Celecoxib 200 MG Oral Capsule (CeleBREX); TAKE 1 CAPSULE DAILY NEEDED Orthopedic - Foot and Ankle Referral Evaluation and Treatment Evaluate AND Treat Status: Hold For - Scheduling Requested for: 09Dec2022 Xray Ankle 3 View; Status:Complete; Done: 09Dec2022 08:56AM Laterality : Right Radiologist to Determine Optimal Study : Y What are the patient's signs and symptoms? 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 Plan: She denies any previous trauma, but has obvious arthritic change throughout the ankle joint. She is interested in surgery and we discussed fusion and replacement options. She would like us to set her up with one of the Foot and Ankle Team specialists to discuss this further. We will start her on some Celebrex. She will stop taking it if it causes any stomach upset. She already has a brace for support. I would be happy to see her back to discuss further options down the road as needed. All questions are answered today with the patient. Chief Complaint CASING MAN RT ANKLE XRAYS TODAY History of Present Illness Ms. Nava is here for her right ankle. She has a chronic history of right ankle pain dating back to her 20?s. She states she was told many years ago, she had very worn down ankles. She takes occasional Aleve, but nothing on a consistent basis. She has tried bracing without much relief. She is here today as a new patient. Active Problems Problems Ankle pain (719.47) (M25.579) Past Medical History Orthopedic history from today is reviewed and signed. Allergies No Known Drug Allergies Recorded By: Holly Duong; 12/09/2022 9:13:32 AM Physical Exam This is a pleasant, 47-year-old female in no apparent distress. She has obvious swelling in the right ankle. She has tenderness more on the anterior and lateral side of the ankle itself. Limited dorsiflexion to 4 degrees, and plantarflexion to 3 degrees. There is pain with inversion and eversion as well. No pain in the midfoot or forefoot. She has a decent arch. Achilles is intact. She is neurovascularly intact throughout. Results/Data Radiology: AP/lateral oblique views of the right ankle show [id number] degenerative change with some collapse of the talus. Signatures Electronically signed by : Barbie Pro, ; Dec 10 2022 3:52PM EST (Manager Reliability/Recorder ) Electronically signed by : Vish Penny MD; Dec 11 2022 11:44AM EST Normal [employer] [facility]iologyon 12-09-2022 XR Ankle 3 Views Normal [facility] Work Phone: Vital Signs Date Time Vital Sign Value Performing Clinician Pavithra minaya 12-28-2022 14:57-0500 Body height 157.48 cm No PCP None -[facility] Work Phone: 12-28-2022 14:57-0500 Body mass index (BMI) [Ratio] 28.53 kg/m2 No PCP None -[facility] Work Phone: 12-28-2022 14:57-0500 Body surface area Derived from formula 1.72 m2 No PCP None -[facility] Work Phone: 12-28-2022 14:57-0500 Body weight 70.76 kg No PCP None -[facility] Work Phone: Encounters Encounter Date Encounter Type Care Provider Facility Start: 08-13-2023 End: 08-13-2023 Subsequent hospital visit by physician Cancellation Jasbir Benavides [facility] Comment on above: Canceled (Patient) Start: 08-13-2023 ambulatory NICKIE KOLE [facility] Start: 07-12-2023 End: 07-13-2023 ambulatory NICKIE KOLE [facility] Start: 07-09-2023 End: 07-10-2023 ambulatory [facility]ICK[facility] KO[facility] Start: 07-02-2023 End: 07-03-2023 ambulatory NICKIE KOLE [facility] Start: 06-29-2023 End: 06-30-2023 ambulatory NICKIE KOLE [facility] Start: 06-25-2023 End: 06-26-2023 ambulatory NICKIE KOLE [facility] Start: 06-18-2023 End: 06-19-2023 ambulatory JEAN CLAUDE SARTHAK LOPEZ [facility] Start: 06-14-2023 End: 06-15-2023 ambulatory JEAN CLAUDE SARTHAK LOPEZ [facility] Start: 06-07-2023 End: 06-08-2023 ambulatory JEAN CLAUDE SARTHAK LOPEZ [facility] Start: 06-02-2023 End: 06-03-2023 ambulatory JEAN CLAUDE SARTHAK LOPEZ [facility] Start: 05-25-2023 End: 05-26-2023 ambulatory NICKIE KOLE [facility] Start: 04-27-2023 End: 04-28-[address] SCOOBY JIMÉNEZ Facility:[facility] Start: 04-05-2023 End: 04-07-2023 Evaluation and management of inpatient DR CLINTON COFFEY . Facility:[facility] Start: 03-27-2023 Encounter for other preprocedural examination [facility] Edy [facility] Start: 03-27-2023 Encounter for preprocedural cardiovascular examination [facility] Start: 03-27-2023 Encounter for preprocedural laboratory examination BRIAN Snow [facility] Start: 03-27-2023 Encounter for preprocedural respiratory examination BRIAN BRANNON [facility] Start: 03-23-2023 End: 03-24-2023 ambulatory BRIAN BRANNON Facility:[facility] Start: 03-23-2023 End: 03-24-2023 Encounter for preprocedural laboratory examination [facility] Start: 02-10-2023 End: 02-11-[address] STEVEN THOMSON Facility:[facility] Start: 01-20-2023 End: 01-21-2023 [facility]ulatory [facility] Start: 01-08-2023 Chart Update No PCP None [facility] Work Phone: Start: 01-06-2023 End: 01-09-2023 ambulatory SARTHAK HERNANDEZ [facility] Start: 01-06-2023 End: 01-08-2023 Subsequent hospital visit by physician Tyson Fuentes Mri Room 1 [facility] Comment on above: Idiopathic avascular necrosis (HCC) Start: 12-28-2022 Office outpatient ne w 45 minutes No PCP None -[facility] Work Phone: Start: 12-28-[address] [id number] Start: 12-09-2022 Office outpatient ne w 30 minutes No PCP None [facility] Work Phone: Start: 12-09-2022 Patient encounter procedure No PCP None [facility] Work Phone: Start: 12-09-[address] Vish Penny Fac lity:[id number] Procedures Date Procedure Procedure Detail Performing Clinician Start: 04-05-2023 Division of Right Lo wer Leg Tendon, Open Approach DR STEVEN THOMSON Start: 04-05-2023 Release Right Foot Subcutaneous Tissue and Fascia, Open Approach DR STEVEN THOMSON Start: 04-05-2023 Replacement of Right Tarsal with Synthetic Substitute, Open Approach DR STEVEN THOMSON Start: 01-06-2023 Mri any jt lower ext rem w/o contrast matrl Sarthak Hernandez MD Work Phone: No history of surgery No PCP None Plan of Treatment Date Care Activity Detail Author Start: 06-29-2023 Influenza vaccination Flu vaccine (# 1) [facility] Start: 12-28-2022 NPV, Provider: Sarthak Hernandez, Status: Pen, Time: 1:45 PM NPV, Provider: Sarthak Hernandez, Status: Pen, Time: 1:45 PM [facility] Work Phone: Start: 06-29-2022 Influenza vaccination Flu vaccine (# 1) [facility] Start: 2019 Screening for malign ant neoplasm of colon [facility] Start: 2014 Lipid panel Lipids [facility] Start: 2004 Screening for malign ant neoplasm of cervix [facility] Start: 1995 Screening for malign ant neoplasm of cervix Pap smear [facility] Start: 1993 DTaP/Tdap/Td vaccine (1 - Tdap) DTaP/Tdap/Td vaccine (1 - Tdap) [facility] Start: 1992 Hepatitis C screening Hepatitis C sc reen [facility] Start: 1989 HIV screening HIV screen [facility] Start: 1986 Depression Screen Depression Screen [facility] Start: 1974 COVID-19 Vaccine (#1) COVID-19 Vacci ne (#1) [facility] Start: 1974 Hepatitis B vaccine (1 of 3 - 3-dose series) Hepatitis B vaccine (1 of 3 - 3-dose series) [facility] Payers Date Payer Category Payer Unknown [id number] 1974 Unknown [id number] 2.16.8 [id number] 1974 Unknown [id number] 2.16. [id number] 1974 Unknown [id number] 2.16.84 0.1.442361.3.579.2.593 1974 Unknown [id number] 2.16.84 0.1.369878.3.579.2.593 1974 Unknown [id number] 2.16.84 0.1.027920.3.579.2.593 1974 Unknown [id number] 2.16.84 0.1.406136.3.579.2.593 1974 Unknown [id number] 2.16.84 0.1.783247.3.579.2.593 1974 Unknown [id number] 2.16.8 40.1.431497.3.579.2.182 1974 Unknown [id number] 2.16.8 40.1.542330.3.579.2.182 1974 Unknown [id number] 2.16.8 40.1.235723.3.579.2.182 1974 Unknown [id number] 2.16.8 40.1.363838.3.579.2.182 1974 Unknown [id number] 2.16.8 40.1.233446.3.579.2.182 1974 Unknown [id number] 2.16.8 40.1.249885.3.579.2.182 1974 Unknown [id number] 2.16.8 40.1.475370.3.579.2.182 1974 Unknown [id number] 2.16.8 40.1.174892.3.579.2.182 1974 Unknown [id number] 2.16.8 40.1.457293.3.579.2.182 1974 Unknown [id number] 2.16.8 40.1.623528.3.579.2.182 1974 Unknown [id number] 2.16.8 40.1.672914.3.579.2.182 1974 Unknown [id number] 2.16.8 40.1.202704.3.579.2.182 Unknown Unknown [id number] Social History Date Type Detail Facility Start: 03-31-2013 Current every day smoker Current every day smoker [facility] Work Phone: Tobacco smoking stat [facility] Tobacco smoking consumption unknown [place] [employer] [facility] Work Phone: Start: 1975 Sex Assigned At Not on file B ON [employer] Work Phone: Start: 03-31-2013 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 [address] [] Certification [] Recertification [] Plan of Care [] Progress Note [x] Discharge Referring Provider: Jean Claude Lopez DPM From: Ghada Fulton DPT Patient: Dinora Nava (48 y.o. female) : 1975 Date: 08/13/2023 Medical Diagnosis: Primary osteoarthritis, right ankle and foot [M19.071] Contracture, right ankle [M24.571] Treatment Diagnosis: Progress Report Period from: 07/12/2023 to 08/13/2023 Visits to Date: 10 No Show: 0 Cancelled Appts: 2 OBJECTIVE: Short Term Goals - Time Frame for Short Term Goals: 4 weeks Goals Current/Discharge status Status Short Term Goal 1: Patient will report </= 2/10 pain in right ankle with short distance ambulation. STG 1 Current Status:: 07/12: </=2/10 during activities Met Short Term Goal 2: Patient will be independent with HEP. STG 2 Current Status:: 07/12: reports compliance with HEP Met Fdc Goals - Time Frame for Piano Stringer Goals : 8 weeks Goals Current/ Discharge status Status Piano Stringer Goal 1: Patient will increase right ankle DF ROM >/= 10 degrees, inversion ROM >/= 40 degrees and eversion >/= 10 degrees for improved functional tolerance. LTG 1 Current Status:: 07/12: DF: -4 deg ; 30 deg ; inv: 14 deg ; ev: 14 deg In progress Fdc Goal 2: Patient will increase strength in right ankle including right hip >/= 4+/5 for improved ambulation. LTG 2 Current Status:: 07/12: 5/5 in ankle and hip; however unable to complete SLS tasks and/or heel raise indicating decreased WBing, strength and stability Partially met, In progress Fdc Goal 3: LEFS >/= 40/80 to demonstrate functional improvements. LTG 3 Current Status:: 07/12: 39/80 In progress Fdc Goal 4: Patient will ambulate independently 150ft with improved bilateral step length and symmetry. LTG 4 Current Status:: 07/12: Reports only able to tolerate walking about a block with her dog. Reduced L LE Wbing and decreased step length noted In progress Assessment: Patient reports she is already back to work and it's been 30 days since last PT visit. Patient would like to try exercises on her own. If she has further issues she will get new PT orders to return to PT. Patient was progressing with PT to more standing exercises but reports some pain. Patient will be D/C from PT at this time. PLAN: Frequency/Duration: Additional Comments: D/C Precautions: Patient Status:[] Continue/ Initiate plan of Care [x] Discharge PT. Recommend pt continue with HEP. [] Additional visits requested, Please re-certify for additional visits: [] Hold Signature: Obj Info entered by: documented in this encounter [facility] Clinical Note 04-28-2023 Note Date & Type Note Facility 04-28-2023 Note PROCEDURE: XR ANKLE RT MIN 3 VIEWS HISTORY: Pain of right ankle joint COMPARISON: XR ankle right 04/05/2023 FINDINGS: BONES:Prosthetic replacement of the talus. No appreciable hardware fracture or change in alignment. No bone fracture dislocation. SOFT TISSUES:Mild anterior and lateral soft tissue swelling. EFFUSION:None visible. OTHER: Negative. IMPRESSION: 1. Slight decrease in soft tissue swelling of the ankle and interval removal of wound VAC. 2. Stable appearance of the bones and prosthetic talus. Electronically authenticated by: SCOOBY JIMÉNEZ Date: 2023-04-28 08:45 [facility] Clinical Note 04-05-2023 Note Date & Type Note Facility 04-05-2023 Note PROCEDURE: XR ANKLE RT MIN 3 VIEWS, XR FOOT RT MIN 3 VIEWS HISTORY: Pain COMPARISON: XR ankle right 04/05/2023 intraoperative images FINDINGS: BONES:Prosthetic talus. Appropriate orientation. No visible fracture of the adjacent structures. SOFT TISSUES:Soft tissue swelling surrounding the ankle. Wound VAC attached anterior to the ankle. EFFUSION:None visible. OTHER: Negative. IMPRESSION: 1. Postop prosthetic replacement of the talus. Follow-up recommended. Electronically authenticated by: SCOOBY JIMÉNEZ Date: 2023-04-05 16:11 [facility] Clinical Note 04-05-2023 Note Date & Type Note Facility 04-05-2023 Note PROCEDURE: XR ANKLE RT MIN 3 VIEWS, XR FOOT RT MIN 3 VIEWS HISTORY: Pain COMPARISON: XR ankle right 04/05/2023 intraoperative images FINDINGS: BONES:Prosthetic talus. Appropriate orientation. No visible fracture of the adjacent structures. SOFT TISSUES:Soft tissue swelling surrounding the ankle. Wound VAC attached anterior to the ankle. EFFUSION:None visible. OTHER: Negative. IMPRESSION: 1. Postop prosthetic replacement of the talus. Follow-up recommended. Electronically authenticated by: SCOOBY JIMÉNEZ Date: 2023-04-05 16:11 [facility] Clinical Note 04-05-2023 Note Date & Type Note Facility 04-05-2023 Note PROCEDURE: XR ANKLE RT 2V HISTORY: Pain COMPARISON: XR ankle bilateral 01/20/2023 FINDINGS: BONES:Multiple intraoperative spot fluoroscopic images demonstrate removal of [place] talus and subsequent replacement with custom anesthetic talus. SOFT TISSUES:Expected intraoperative findings. IMPRESSION: 1. Intraoperative prosthetic replacement of the talus. Electronically authenticated by: SCOOBY JIMÉNEZ Date: 2023-04-05 16:09 [facility] History of Present illness Narrative 12-29-2021 Note Date & Type Note Facility 12-29-2021 History of Present illness Narrative 47 female here for right ankle pain. Longstanding issue of pain in the right ankle. Has old notes and MRI reports from previous evaluation in [place]. 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 Is increasing pain and swelling during the day. No diabetes. Non-smoker. Has had increased pain over the past year.On exam:WD/WN thin femaleA+O S5VRTVp lymphedemaInspection of both feet and ankles show symmetric arches.Moderate swelling about right ankle. Plantigrade foot.Limited ankle and subtalar motion on right. Good motion at midfoot.5/5 strength in all 4 planes.Sensation intact to LT.Good pulses.Stable anterior drawer.No peroneal subluxation.(-) Chandana.I personally reviewed the following radiographic exams: Previous MRI report of right ankle from over 3 years ago's shows some geographic changes of the talus consistent with avascular necrosis. X-rays of right ankle today shows a very sclerotic talar body with a possible fracture line near the lateral process near the neck. Has a normal talar head towards the talonavicular joint. He has collapse of the tibiotalar and subtalar joint.Assessment: Right talar body avascular necrosis possible stress fracture talar neck.Plan: Discussed nonoperative and operative options in detail.Risk and benefits discussed in detail. All questions answered today.Recovery timeline and expectations discussed in detail.Is not a candidate for ankle replacement because of the involvement of the talar body. Recommend repeat MRI to evaluate the vascularity of the body and possible fracture. Discussed likely hindfoot fusion with the nail with allograft femoral head and bone marrow. Discussed postop recovery. Discussed option of referral to the [facility] if she wants to discuss total talus replacement. -[facility] Work Phone: Evaluation note Note Date & Type Note Facility Evaluation note Diagnosis Idiopathic avascular necrosis (HCC) Aseptic necrosis of bone, site unspecified documented in this encounter [facility] Work Phone: History of Present illness Narrative Note Date & Type Note Facility History of Present illness Narrative Ms. Nava is here for her right ankle. She has a chronic history of right ankle pain dating back to her 20 s. She states she was told many years ago, she had very worn down ankles. She takes occasional Aleve, but nothing on a consistent basis. She has tried bracing without much relief. She is here today as a new patient. [facility] Work Phone: History of Present illness Narrative Note Date & Type Note Facility History of Present illness Narrative Ms. Nava is here for her right ankle. She has a chronic history of right ankle pain dating back to her 20 s. She states she was told many years ago, she had very worn down ankles. She takes occasional Aleve, but nothing on a consistent basis. She has tried bracing without much relief. She is here today as a new patient. [facility] Work Phone: Chief Complaint * CASING MAN RT ANKLE * XRAYS TODAY * CASING MAN RT ANKLE * XRAYS TODAY Right ankle* CASING MAN RT ANKLE * XRAYS TODAY Summary Purpose Family History Unknown Family Member Name Dates Details Family history of arthritis: Mother(V17.7, Z82.61) Status:Active Family history of malignant neoplasm: Father(V16.9, Z80.9) Status:Active Unknown Family Member Name Dates Details Family history of arthritis: Mother(V17.7, Z82.61) Status:Active Family history of malignant neoplasm: Father(V16.9, Z80.9) Status:Active Unknown Family Member Name Dates Details Family history of arthritis: Mother(V17.7, Z82.61) Status:Active Family history of malignant neoplasm: Father(V16.9, Z80.9) Status:Active Advance Directives No Advanced Directives Records FoundNo Advanced Directives Records FoundNo Advanced Directives Records FoundNo Advanced Directives Records FoundNo Advanced Directives Records Found Reason for Referral Specialty Diagnoses / Procedures Referred By Contsolitario t Referred To Contact Radiology Diagnoses Idiopathic avascular necrosis (HCC) Procedures MRI ANKLE RIGHT WO CONTRAST Sarthak Hernandez MD [address] [place] [address] [place] [address] Referral ID Status Reason Start Date Expiration Date Visits Re quested Visits Authorized [id number] Closed 01/05/2023 02/04/2023 1 1 Additional Source Comments INFORMATION SOURCE (unrecogn ized section and content) DATE CREATED AUTHOR 12/22/2022 [facility] DATE CREATED AUTHOR AUTHOR'S ORGANIZ ATION 12/28/2022 [facility] DATE CREATED AUTHOR AUTHOR'S ORGANIZ ATION 12/29/2022 [employer] DATE CREATED AUTHOR AUTHOR'S ORGANIZ ATION 05/07/2023 [facility] DATE CREATED AUTHOR AUTHOR'S ORGANIZ ATION 08/13/2023 [facility] Reason for Visit (unrecogniz ed section and content) Specialty Diagnoses / Procedures Referred By Contac t Referred To Contact Radiology Diagnoses Idiopathic avascular necrosis (HCC) Procedures MRI ANKLE RIGHT WO CONTRAST Sarthak Hernandez MD [address] [place] [address] [place] [address] Referral ID Status Reason Start Date Expiration Date Visits Re quested Visits Authorized [id number] Closed 01/05/2023 02/04/2023 1 1 Specialty Diagnoses / Procedures Referred By Contac t Referred To Contact Diagnoses Primary osteoarthritis, right ankle and foot Contracture, right ankle [facility] [address] [place] [address] [facility] [address] [place] [address] Referral ID Status Reason Start Date Expiration Date Visits Re quested Visits Authorized [id number] 1 1 Care Teams (unrecognized sec tion and content) 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 This clinical summary was aggregated from multiple sources. Caution should be exercised in using it in the provision of clinical care. This summary normalizes information from multiple sources, and as a consequence, information in this document may materially change the coding, format and clinical context of patient data. In addition, data may be omitted in some cases. CLINICAL DECISIONS SHOULD BE BASED ON THE PRIMARY CLINICAL RECORDS. [facility] [employer]. provides no warranty or guarantee of the accuracy or completeness of information in this document.
[2024-04-27 09:19] LABS: Glucometer 99 mg/dL (74-106)
[2024-04-27] MEDS: LACTATED RINGER'S SOLUTION 1,000 ML 50 ML IV ×2 (09:33→11:30)
[2024-04-27] MEDS: CEFAZOLIN SODIUM/DEXTROSE,ISO 2 GM/50 ML PIGGYBACK IV ×2 (09:58→17:00)
--- NOTE | 2024-04-27 10:06 | PM.ORONB ---
Brief Operative Note Date of procedure: 04/27/24 Pre-op diagnosis general: Right ankle impingement, arthritis and avascular necrosis Post-op diagnosis: same as pre-op Procedure: Procedure performed: right ankle arthroscopy Indications for procedure: Patient is a 49-year-old female well-known to my practice who underwent total talus replacement on 04/05/2023. Her recovery was unremarkable and for nearly a year she did very well however over the last few months she has noticed decreased range of motion and pain with maximum ankle joint dorsiflexion. Radiographically there was an anterior ankle osteophyte best noted on the lateral projection with preservation of the joint space and a stable total talus implant. Due to this ongoing impingement I offered surgical and nonsurgical treatment options and explained the risks and benefits of both. Patient has elected to undergo the above procedures. Intraoperative findings: Procedure in detail patient was identified in preoperative holding by myself which time correct side and site were marked and consent was obtained. Patient was brought back to the operating theater perioperative antibiotics were started and patient was placed on to the table in the supine position. General anesthesia was administered and the right lower extremity was prepped and draped in usual sterile fashion. Formal timeout was performed. The operative extremity was exsanguinated and the tourniquet was inflated. Standard anterior medial ankle portal was created with a scalpel and blunt dissection down to the capsule was performed. Then the trocar and cannula were placed through the capsule into the anterior ankle joint. A camera was placed through the cannula replacing the trocar. Then with the aid of a camera an anterior lateral portal was created in the standard safe zone. A 3.5 mm aggressive shaver was placed into the anterior lateral portal. Chronic synovitis and capsular tissue was debrided from the anterior ankle space. All impingement soft tissue was removed with the shaver. An osteophyte was identified but was too large to remove efficiently with the scope. The medial portal was then extended proximally and distally and upon deeper dissection the patient began having changes in heart rate, blood pressure as well as EKG changes were observed by anesthesia. It was requested at this time that the tourniquet be deflated which it promptly was and a prompt hyperemic response was noted. A wet lap was placed over the surgical site and pressure was held. We are then instructed that the procedure needed to be concluded so the site was irrigated and promptly closed in layers. A dry sterile dressing was then applied. The patient was ultimately extubated and transported to the recovery room. Labs and further workup pending and patient will likely be transferred to the ICU and depending on the results of the workup by anesthesia patient may require transfer to tertiary facility. I spoke to the patient's significant other and explained the situation as did anesthesia and all questions were answered to his satisfaction. I explained that the arthroscopy was completed but the arthrotomy and removal of the anterior osteophyte was not performed due to the cardiac concerns. I explained that I am hopeful that the removal of the soft tissue impingement will improve her symptoms but time will tell and she may require the osteophyte to be removed at a later date. Patient may be weightbearing as tolerated. Ice and elevation to the operative foot Will follow while in house Anesthesia: General-LMA Surgeon: Obed Flores Transition Program Manager: Bony Smith Estimated blood loss (mL): 25 Pathology: none sent Condition: stable Disposition: PACU
[2024-04-27] MEDS: LIDOCAINE HCL 1% 100 MG/10 ML MDV INJ (10:35)
[2024-04-27] MEDS: BUPIVACAINE HCL 0.5% PF 50 MG/10 ML VIAL 20 ML INJ (10:35)
--- NOTE | 2024-04-27 11:33 | ECG_ITS ---
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
--- NOTE | 2024-04-27 11:48 | XR_ITS ---
The [address] [address] Patient Name: IAM ROQUE MRN: [id number] date: 1975 Sex: F Assigned Patient Location: [facility] Current Patient Location: [facility] Accession/Order Number: [id number] Exam Date: 04/27/2024 11:42 Report Date: 04/27/2024 12:08 At the request of: NIKITA SAMUEL Procedure: XR chest 1V EXAM: XR chest 1V at 1109 hours HISTORY: cough COMPARISON: 04/13/2024 TECHNIQUE: AP upright portable chest x-ray FINDINGS: The heart is not enlarged and the vasculature is not distended. No acute infiltrate, effusion or pneumothorax is identified. The osseous structures are grossly intact. XR/XR chest 1V IMPRESSION: No acute infiltrate or evidence of cardiac decompensation. The overall appearance of the chest is essentially unchanged. Electronically authenticated by: BRIAN BRADLEY Date: 04/27/2024 12:08
[2024-04-27 11:53] LABS: Troponin I High Sensitivity <4.0 pg/mL (4.0-51.3)
[2024-04-27 12:08] LABS: Glucometer 129 mg/dL (74-106)
--- NOTE | 2024-04-27 12:20 | PC.NURSE ---
Moist non-productive cough noted
--- NOTE | 2024-04-27 12:25 | PC.NURSE ---
No c/o chest pain or SOB; frequent moist non-productive cough noted
--- NOTE | 2024-04-27 12:28 | PC.NURSE ---
Cough more infrequent
--- NOTE | 2024-04-27 12:33 | PC.NURSE ---
coughing has almost completely ceased
--- NOTE | 2024-04-27 12:36 | PC.NURSE ---
No c/o chest pain or SOB
--- NOTE | 2024-04-27 12:40 | PC.NURSE ---
right lower extremity elevated above heart level and ice bag applied behind knee
--- NOTE | 2024-04-27 13:15 | PC.NURSE ---
No c/o chest pain or SOB
--- NOTE | 2024-04-27 13:20 | PC.NURSE ---
No c/o chest pain or SOB
--- NOTE | 2024-04-27 13:23 | P.HP_ITS ---
HPI H&P: HPI History of Present Illness Chief complaint: right ankle specified joint disorders Narrative: Ms. Nava is a pleasant 49 y.o with history of seasonal allergies and tobacco abuse (vaping). She presented to the hospital today for surgical intervention, for ankle scope by Dr. Flores. Intraoperatively, patient's oxygen saturations declined, HR increased and there were some changes on cardiac strip (3 lead) that appeared to be ST Elevation. During this time patient also was thought to have a bronchospasm and was receiving albuterol neb and also getting ET tube. Tachycardia resolve, surgery finished and patient was extubated in the PACU. Troponin, 12 lead EKG and chest x-ray was obtained. Patient denies having any chest pain currently. She also denies having any shortness of breath. She has been taking Claritin for seasonal allergies. Otherwise, no recent illness. She has no personal cardiac history, no family cardiac history. She rarely sees a family doctor. She had ankle replacement 1 year ago. EKG showed NSR with no ST segment changes; normal chest X-ray; and Troponin x 1 was normal Opioid HPI Opioid Management Most Recent Opioid Data: Last Pain Assessment 04/27/24 14:00 Last ORT Total Score 0 04/27/24 13:05 Last ORT Risk Category Low Risk 04/27/24 13:05 Review of Systems ROS Narrative ROS: a complete review of systems were reviewed with patient and are positive as below or listed in History of Chief Complaint. General: no fever, chills, night sweats Head: no headache, trauma, visual changes, nausea or vomiting Skin: no reported rashes, itching or sores Eyes: no blurriness of vision Ears: no reported hearing loss, vertigo, earache, or tinnitus Throat: no sore throat, hoarseness, swelling of neck, or tongue pain Heart: no chest pain Lungs: no shortness of breath or cough GI: no diarrhea or vomiting/nausea Urinary: no urinary urgency, frequency or pain Neuro: no numbness or tingling HEM: no bleeding issues or bruising ENDO: no thyroid problems Psych: no anxiety or depression [facility] Medical History (Updated 04/27/24 @ 14:07 by Maty Franco, ) Seasonal allergies ?J30.2 - Other seasonal allergic rhinitis (ICD-10) Tobacco abuse ?Z72.0 - Tobacco use (ICD-10) Arthritis of right ankle ?M19.071 - Primary osteoarthritis, right ankle and foot (ICD-10) Electronic cigarette use ?Z78.9 - Other specified health status (ICD-10) Ankle pain ?M25.579 - Pain in unspecified ankle and joints of unspecified foot (ICD-10) Other specified joint disorders, right ankle and foot ?M25.871 - Other specified joint disorders, right ankle and foot (ICD-10) GERD (gastroesophageal reflux disease) ?K21.9 - Gastro-esophageal reflux disease without esophagitis (ICD-10) Shingles ?B02.9 - Zoster without complications (ICD-10) Arthritis ?M19.90 - Unspecified osteoarthritis, unspecified site (ICD-10) Anemia ?D64.9 - Anemia, unspecified (ICD-10) Menopause ?Z78.0 - Asymptomatic menopausal state (ICD-10) Avascular necrosis of right talus ?M87.071 - Idiopathic aseptic necrosis of right ankle (ICD-10) Surgical History History of ankle surgery ?Z98.890 - Other specified postprocedural states (ICD-10) H/O tooth extraction ?K08.409 - Partial loss of teeth, unspecified cause, unspecified class (ICD- 10) H/O LEEP ?Z98.890 - Other specified postprocedural states (ICD-10) H/O colonoscopy ?Z98.890 - Other specified postprocedural states (ICD-10) H/O breast biopsy ?Z98.890 - Other specified postprocedural states (ICD-10) 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) ?Z96.669 - Presence of unspecified artificial ankle joint (ICD-10) Family History Other Breast cancer Factor V deficiency Social History Within the past year, how often did you have a drink containing alcohol: 4 or more times a week Within the past year, how many standard drinks containing alcohol did you have on a typical day: 5 or 6 Smoking status: Current every day smoker Do you use any of these nicotine containing products: vaping products Non-prescribed substance use: denies use 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 Highest level of school completed/degree received: high school graduate Meds Home Medications and Allergies Home Medications ?Medication ?Instructions ?Recorded ?Confirmed ?Type aspirin 81 mg tablet,delayed 81 mg PO BID 30 days #60 tabs 04/27/24 Rx release (Adult Low Dose Aspirin) cefadroxil 500 mg capsule 500 mg PO BID 2 weeks #28 caps 04/27/24 Rx ondansetron 4 mg disintegrating 4 mg PO Q8H PRN nausea and 04/27/24 Rx tablet vomiting 5 days #15 tabs oxycodone-acetaminophen 5 mg-325 1 tab PO Q6H PRN pain 7 days #28 04/27/24 Rx mg tablet (Percocet) tabs sennosides 8.6 mg tablet (Senna 8.6 mg PO DAILY PRN constipation 7 04/27/24 Rx Laxative) days #7 tabs tizanidine 2 mg tablet 2 mg PO TID PRN muscle spasticity 04/27/24 Rx 7 days #21 tabs Allergies Allergy/AdvReac Type Severity Reaction Status Date / Time No Known Drug Allergies Allergy Verified 04/13/24 10:16 Exam Narrative Exam Narrative: General: Patient is alert, and oriented to person, place and time with normal affect, proper hygiene, resting comfortably in bed Skin: no visible rashes, or ulcers Head: atraumatic, acephalic Eyes: PERRLA, no nystagmus present, conjunctiva clear, no scleral icterus Ears:normal gross auditory acuity Nose: symmetric, no discharge, no maxillary or frontal sinus tenderness Neck: no masses palpated Heart: Normal rate and rhythm, no murmurs/rubs/gallops Lungs: no audible wheezes, crackles and normal breath sounds all lung izaguirre Abdomen: Normal audible bowel sounds, no distension, No palpable masses, no organomegaly, no rebound/guarding/ or rigidity Musculoskeletal: no swelling bilateral lower extremities Neuro: CN II-X grossly intact Constitutional Vital Signs, click to edit/add: Last Vital Signs Temp 98.1 F 04/27/24 11:36 Pulse 72 04/27/24 12:37 Resp 10 L 04/27/24 12:37 BP 106/68 04/27/24 13:00 Pulse Ox 92 L 04/27/24 13:10 O2 Del Method Nasal Cannula 04/27/24 12:37 O2 Flow Rate 3 04/27/24 12:37 Assessment and Plan Assessment and Plan (1) Acute bronchospasm: Assessment and Plan: patient has recovered well. Will place on PRN Albuterol treatments. (2) Abnormal EKG: Assessment and Plan: continue to trend troponins x 3, Chest X-ray negative, EKG post op NSR; lipids, ha1c, cbc, cmp, TSH in the morning. (3) Tobacco abuse: Assessment and Plan: refusal to quit at this time (4) Seasonal allergies: Assessment and Plan: takes daily claritin. Plan patient is a full code patient admitted for observation. If all cardiac work up negative, will discharge patient home with close outpatient follow up for exercise stress test.
[2024-04-27 13:34] LABS: Basophils Absolute Auto 0.1 10^3/uL (0.0-0.1); Basophils Percent Auto 1.1 % (0.2-2.0); Eosinophils Absolute Auto 0.2 10^3/uL (0.0-0.7); Eosinophils Percent Auto 1.7 % (0.9-7.0); Hematocrit 46.2 % (36.0-48.0); Immature Granulocytes Abs Auto 0.08 10^3/uL (0.00-0.03); Immature Granulocytes Pct Auto 0.8 % (0.0-0.5); Lymphocytes Absolute Auto 2.4 10^3/uL (1.2-3.8); Lymphocytes Percent Auto 22.8 % (20.5-60.0); Mean Corpuscular HGB Conc 32.5 g/dL (29.9-35.2); Mean Corpuscular Hemoglobin 34.6 pg (26.7-34.0); Mean Corpuscular Volume 106.5 fL (81.0-99.0); Mean Platelet Volume 11.5 fL (9.5-13.5); Monocytes Absolute Auto 0.7 10^3/uL (0.3-0.8); Monocytes Percent Auto 6.6 % (1.7-12.0); Platelet Count 228 10^3/uL (150-450); Red Blood Count 4.34 10^6/uL (4.20-5.40); Red Cell Distribution Width 13.8 % (11.0-15.0); White Blood Count 10.4 10^3/uL (4.0-11.0)
--- NOTE | 2024-04-27 13:46 | PC.NURSE ---
1250 admitted to icu rm 273. oriented to room and call light. pt denies pain, sob. placed on room air, spo2 93%. encouraged to cough and deep breathe. right lower extremity wrapped in sal wrap, toes warm, denies numbness or tingling. elevated on pillows and ice applied.
[2024-04-27 13:52] LABS: Alanine Aminotransferase 28 U/L (14-59); Albumin Globulin Ratio 0.9; Albumin Level 2.7 g/dL (3.4-5.0); Alkaline Phosphatase 93 U/L (46-116); Anion Gap 12.7; Aspartate Amino Transferase 23 U/L (15-37); BUN Creatinine Ratio 6.7; Bilirubin Total 0.4 mg/dL (0.2-1.0); Calcium 8.1 mg/dL (8.5-10.1); Chloride 104 mmol/L (98-107); Estimated GFR (African America >60 (>=60); Estimated GFR (Non-African Ame >60 (>=60); Globulin 3.1 g/dL; Glucose 117 mg/dL (74-106); Potassium 3.7 mmol/L (3.5-5.1); Sodium 139 mmol/L (136-145); Thyroid Stimulating Hormone 2.569 uIU/mL (0.358-3.740); Total Protein 5.8 g/dL (6.4-8.2)
--- NOTE | 2024-04-27 15:10 | CA_ITS ---
Patient Name: IAM ROQUE MR#: [id number] : 1975 Exam Date: 04/27/2024 Ordering Doctor: TAIHR SAMUEL . ECHOCARDIOGRAM REPORT PROCEDURE: CA ECHO DOPPLER COMPLETE INDICATIONS: abnormal EKG, bronchospasm COMPARISON: None. DESCRIPTION: COMPLETE ECHOCARDIOGRAM Real-time transthoracic echocardiography with 2D, M-mode, spectral and color flow Doppler performed. QUALITY: Technical quality was good. LEFT VENTRICLE: Normal chamber size. Borderline left ventricular hypertrophy. Normal systolic function. LV EF: Estimated left ventricular ejection fraction is 65-70%. DIASTOLIC: Normal diastolic function. ATRIAL SEPTUM: LEFT ATRIUM: Normal chamber size. RIGHT ATRIUM: Normal chamber size. RIGHT VENTRICLE: Normal chamber size. Normal right ventricular systolic function. TRICUSPID VALVE: Normal mobility and thickness. No stenosis with trivial regurgitation. No evidence of pulmonary hypertension. RVSP 19 mmHg MITRAL VALVE: Normal mobility and thickness. No evidence of mitral valve stenosis. There is no mitral annular calcification. Trivial mitral regurgitation. AORTIC VALVE: Normal trileaflet appearance. No visible sclerosis. Normal leaflet mobility. No evidence of aortic valve stenosis. No aortic regurgitation. AORTIC ROOT: Normal diameter and appearance. PULMONIC VALVE: Normal thickness and mobility. No stenosis. Trivial regurgitation. PERICARDIUM: No evidence of pericardial effusion. IVC: Collapses with inspirations. Normal size. PLEURA: CONCLUSION: 1. Normal ventricular size and function. LVEF is estimated at 65 to 70%. 2. No significant valvular dysfunction. 3. Normal right-sided pressures. 4. No pericardial effusion. Adult Echocardiography Procedure Report Left Ventricle LVEDD (3.7 - 5.6 cm): 4.67 cm LVESD (2.2 - 4.0 cm): 2.86 cm LVIVS thickness (0.6 - 1.2 cm): 1.00 cm LVPW thickness (0.5 - 1.0 cm): 1.00 cm e': 0.11 m/s E - e': 5.57 LVOT Max Gradient: 3.51 mm[Hg] LVOT Area (cm2): 0.94 m/s Peak Velocity (LVOT): 0.94 m/s Mean Velocity (LVOT): 0.68 m/s LVOT Diameter 1.91 cm Left Ventricular Ejection Fraction: 65-70 % Left Atrium LA Volume Index (2D A2C): 24.42 ml/m2 Left Atrium Systolic Dimension: 3.12 cm Mitral Valve MV E to A Ratio: 1.12, 1.03 Mitral Valve A-Wave Peak Velocity: 0.55 m/s Mitral Valve E-Wave Peak Velocity: 0.59 m/s Right Ventricle RV Internal Diastolic Dimension: 3.14 cm Aorta AO Root Diam: 2.99 cm Ascending Ao Diam: 2.52 cm Aortic Valve AoV Area (Peak John): 2.02 cm2, 2.02 cm2 AoV Area (VTI): 1.99 cm2, 1.99 cm2 Peak Velocity(Antegrade Flow): 1.33 m/s Peak Gradient(Antegrade Flow): 7.08 mm[Hg] Mean Velocity(Antegrade Flow): 0.93 m/s Mean Gradient(Antegrade Flow): 3.95 mm[Hg] Velocity Time Integral: 30.43 cm Tricuspid Valve Peak Velocity (Regurgitant Flow): 1.77 m/s, 2.04 m/s, 1.96 m/s Pulmonic Valve Mean Gradient: 2.25 mm[Hg], 2.37 mm[Hg], 2.14 mm[Hg] Mean Velocity: 0.71 m/s, 0.73 m/s, 0.68 m/s Peak Velocity: 0.97 m/s Peak Gradient: 3.87 mm[Hg], 3.87 mm[Hg], 3.57 mm[Hg] Right Atrium Right Atrium Systolic Pressure: 28.02 ml, 28.02 ml Dictated by: Kenan Martin M.D. on 04/28/2024 at 18:26 Approved by: Kenan Martin M.D. on 04/28/2024 at 18:29
[2024-04-27 15:29] LABS: Troponin I High Sensitivity <4.0 pg/mL (4.0-51.3)
[2024-04-27] MEDS: ENOXAPARIN SODIUM 40 MG/0.4 ML SYRINGE SUBQ (16:58)
[2024-04-28 00:05] VITALS: BP 132/92; PULSE 74; TEMP 36.5; O2SAT 97
[2024-04-28 01:59] VITALS: PULSE 67
[2024-04-28] MEDS: CEFAZOLIN SODIUM/DEXTROSE,ISO 2 GM/50 ML PIGGYBACK IV (04:00)
[2024-04-28] MEDS: OXYCODONE HCL 5 MG TABLET PO (04:03)
[2024-04-28 04:05] VITALS: BP 139/80; PULSE 65; PULSE 66; TEMP 36.5; O2SAT 97
[2024-04-28 05:41] LABS: Basophils Absolute Auto 0.1 10^3/uL (0.0-0.1); Basophils Percent Auto 0.4 % (0.2-2.0); Eosinophils Absolute Auto 0.1 10^3/uL (0.0-0.7); Eosinophils Percent Auto 0.7 % (0.9-7.0); Hematocrit 42.8 % (36.0-48.0); Immature Granulocytes Abs Auto 0.06 10^3/uL (0.00-0.03); Immature Granulocytes Pct Auto 0.4 % (0.0-0.5); Lymphocytes Percent Auto 22.3 % (20.5-60.0); Mean Corpuscular HGB Conc 32.7 g/dL (29.9-35.2); Mean Corpuscular Hemoglobin 34.6 pg (26.7-34.0); Mean Corpuscular Volume 105.7 fL (81.0-99.0); Mean Platelet Volume 11.6 fL (9.5-13.5); Monocytes Absolute Auto 0.9 10^3/uL (0.3-0.8); Monocytes Percent Auto 6.3 % (1.7-12.0); Neutrophils Absolute Auto 9.4 10^3/uL (1.4-6.5); Neutrophils Percent Auto 69.9 % (43.0-75.0); Platelet Count 215 10^3/uL (150-450); Red Blood Count 4.05 10^6/uL (4.20-5.40); Red Cell Distribution Width 13.5 % (11.0-15.0); White Blood Count 13.5 10^3/uL (4.0-11.0)
[2024-04-28 06:01] VITALS: PULSE 65
[2024-04-28 06:01] LABS: Alanine Aminotransferase 23 U/L (14-59); Albumin Globulin Ratio 0.7; Albumin Level 2.4 g/dL (3.4-5.0); Alkaline Phosphatase 88 U/L (46-116); Anion Gap 11.5; Aspartate Amino Transferase 23 U/L (15-37); Bilirubin Total 0.5 mg/dL (0.2-1.0); Calcium 8.2 mg/dL (8.5-10.1); Carbon Dioxide 26.6 mmol/L (21.0-32.0); Chloride 106 mmol/L (98-107); Chol HDL Ratio 2.1; Cholesterol 153 mg/dL (<=200); Estimated GFR (African America >60 (>=60); Estimated GFR (Non-African Ame >60 (>=60); Globulin 3.3 g/dL; Glucose 91 mg/dL (74-106); HDL Cholesterol 72 mg/dL (40-60); Potassium 3.1 mmol/L (3.5-5.1); Sodium 141 mmol/L (136-145); Total Protein 5.7 g/dL (6.4-8.2); Triglycerides 86 mg/dL (<=150); VLDL CHOLESTEROL 17.2 mg/dL
[2024-04-28 06:03] LABS: Estimated Average Glucose 94 mg/dL; Glycohemoglobin A1C 4.9 % (4.5-6.2)
[2024-04-28 07:57] VITALS: PULSE 82; TEMP 36.8
[2024-04-28] MEDS: POTASSIUM CHLORIDE 10 MEQ ER TABLET 40 MEQ PO (08:23)
--- NOTE | 2024-04-28 09:03 | P.DS_ITS ---
<Statement entered by Shaikh Kim MD - 04/28/24 13:01> This documentation has been reviewed and approved. Chart reviewed, case discussed with case management and hospice nurse practitioner. Patient had left before I could see her. Agree with clinical documentation and treatment plan. Follow-up with podiatry as outpatient. Follow-up with PCP and discuss ischemic workup for possible underlying coronary artery disease as outpatient DS: Providers Provider Primary care physician: Non-Staff Physician, Discharging clinician: Iqra Schneider DS: Diagnosis Discharge Diagnosis (1) Acute bronchospasm: (2) Abnormal EKG: (3) Hypokalemia: (4) Leukocytosis: (5) Tobacco abuse: (6) Seasonal allergies: DS: Summary Hospital Course Hospital Course: The patient was admitted in observation after experiencing EKG changes intraoperatively during a right ankle laparoscopic debridement by podiatry. Repeat EKGs post op were unremarkable and serial cardiac enzymes were negative. We clinically suspect the initial EKG changes were 2/2 bronchospasm rather than any acute coronary ischemic process. The patient completely denies any chest pain or shortness of breath. She developed mild hypokalemia on the day of discharge which was repleted with p.o. KCl. Mild leukocytosis was also noted on the day of discharge and is likely reactive to her surgical intervention. She is being discharged home in stable condition. She should follow-up with podiatry next week and maintain her surgical dressing dry and intact until that appointment. She should ambulate with weightbearing as tolerated using a cam boot. Pain management, DVT prophylaxis, and antibiotics if indicated are deferred to the podiatry service. She should also follow-up with her PCP within 5 to 7 days and schedule an outpatient exercise stress test after she has recovered from her ankle surgery. Time Spent with Patient Time attestation: Total time spent providing and/or coordinating discharge services: Time spent: greater than 30 minutes Specific discharge activities: Physical exam, discussion of discharge plan, questions answered. Exam Constitutional Vital Signs, click to edit/add: Last Vital Signs Temp 98.2 F 04/28/24 07:57 Pulse 82 04/28/24 07:57 Resp 12 04/28/24 04:05 BP 139/80 04/28/24 04:05 Pulse Ox 97 04/28/24 04:05 O2 Del Method Room Air 05/31/24 04:05 O2 Flow Rate 3 04/27/24 12:37 Common normals: no apparent distress, oriented x3 and alert General appearance: cooperative Orientation/consciousness: Yes awake HENMT Common normals: normocephalic and head/scalp atraumatic Eye Common normals: PERRL, EOMs intact bilaterally, conjunctivae normal and no scleral icterus Neck & C-Spine Common normals: no JVD Respiratory Common normals: normal respiratory effort, no use of accessory muscles and clear to auscultation bilaterally Effort & inspection: able to speak in complete sentences and symmetric chest movement Cardio Common normals: no JVD, regular rate, regular rhythm, S1 normal heart sound, S2 normal heart sound, no murmurs and peripheral pulses 2+ throughout GI Common normals: Normal to inspection, nondistended, normoactive bowel sounds present, soft to palpation and non-tender Bladder/kidney exam: bladder normal to palpation Extremity Common normals: normal to inspection, full ROM, normal capillary refill and no pedal edema General: no clubbing and no cyanosis Other: Good CMS to operative R foot Neuro Common normals: moves all extremities, no focal motor deficits and no sensory deficits noted Speech: speech normal Psych Common normals: mental status grossly normal and activity/motor behavior normal DS: Data Data Completed and Pending Labs on day of discharge: Labs from last 24 hours 04/28/24 04/27/24 04/27/24 03:54 15:05 12:07 WBC 13.5 H RBC 4.05 L Hgb 14.0 Hct 42.8 MCV 105.7 H MCH 34.6 H MCHC 32.7 RDW 13.5 Plt Count 215 MPV 11.6 Neut % (Auto) 69.9 Lymph % (Auto) 22.3 [place] % (Auto) 6.3 Eos % (Auto) 0.7 L Baso % (Auto) 0.4 Neut # (Auto) 9.4 H Lymph # (Auto) 3.0 [place] # (Auto) 0.9 H Eos # (Auto) 0.1 Baso # (Auto) 0.1 Abs Immat Gran (auto) 0.06 H Imm/Tot Granulo (auto) 0.4 Sodium 141 Potassium 3.1 L Chloride 106 Carbon Dioxide 26.6 Anion Gap 11.5 BUN 3.0 L Creatinine 0.60 Est GFR ( Amer) >60 Est GFR (Non-Af Amer) >60 BUN/Creatinine Ratio 5.0 Glucose 91 Estimat Average Glucose 94 Hemoglobin A1c 4.9 Calcium 8.2 L Total Bilirubin 0.5 AST 23 ALT 23 Alkaline Phosphatase 88 Troponin I High Sens <4.0 L NT-Pro-B Natriuret Pep Total Protein 5.7 L Albumin 2.4 L Globulin 3.3 Albumin/Globulin Ratio 0.7 Triglycerides 86 Cholesterol 153 LDL Cholesterol, Calc 64.0 VLDL Cholesterol 17.2 HDL Cholesterol 72 H Cholesterol/HDL Ratio 2.1 TSH POC Glucose 129 H 04/27/24 04/27/24 11:30 09:17 WBC 10.4 RBC 4.34 Hgb 15.0 Hct 46.2 MCV 106.5 H MCH 34.6 H MCHC 32.5 RDW 13.8 Plt Count 228 MPV 11.5 Neut % (Auto) 67.0 Lymph % (Auto) 22.8 [place] % (Auto) 6.6 Eos % (Auto) 1.7 Baso % (Auto) 1.1 Neut # (Auto) 7.0 H Lymph # (Auto) 2.4 [place] # (Auto) 0.7 Eos # (Auto) 0.2 Baso # (Auto) 0.1 Abs Immat Gran (auto) 0.08 H Imm/Tot Granulo (auto) 0.8 H Sodium 139 Potassium 3.7 Chloride 104 Carbon Dioxide 26.0 Anion Gap 12.7 BUN 4.0 L Creatinine 0.60 Est GFR ( Amer) >60 Est GFR (Non-Af Amer) >60 BUN/Creatinine Ratio 6.7 Glucose 117 H Estimat Average Glucose Hemoglobin A1c Calcium 8.1 L Total Bilirubin 0.4 AST 23 ALT 28 Alkaline Phosphatase 93 Troponin I High Sens <4.0 L NT-Pro-B Natriuret Pep 146.0 Total Protein 5.8 L Albumin 2.7 L Globulin 3.1 Albumin/Globulin Ratio 0.9 Triglycerides Cholesterol LDL Cholesterol, Calc VLDL Cholesterol HDL Cholesterol Cholesterol/HDL Ratio TSH 2.569 POC Glucose 99 Discharge Plan Discharge Disposition: Home, Self-Care Condition: Good Discharge Medications: New sennosides [Senna Laxative] 8.6 mg tablet 8.6 mg PO DAILY PRN (Reason: constipation) 7 Days Qty: 7 0RF tizanidine 2 mg tablet 2 mg PO TID PRN (Reason: muscle spasticity) 7 Days Qty: 21 0RF aspirin [Adult Low Dose Aspirin] 81 mg tablet,delayed release (DR/EC) 81 mg PO BID 30 Days Qty: 60 0RF cefadroxil 500 mg capsule 500 mg PO BID 14 Days Qty: 28 0RF oxycodone-acetaminophen [Percocet] 5-325 mg tablet 1 tab PO Q6H PRN (Reason: pain) 7 Days Qty: 28 0RF ondansetron 4 mg tablet,disintegrating 4 mg PO Q8H PRN (Reason: nausea and vomiting) 5 Days Qty: 15 0RF Follow Up Appointments: - Follow up with Dr. Flores on May 02 at 10:30am - Follow up with Dr. Perez in 5-7 days for stress test. Activity: increase activity as tolerated Activity Restrictions/Additional Instructions: - Recommend outpatient exercise stress test to complete cardiac workup - Leave surgical dressing dry & intact until follow up visit with Mark - Weight bearing as tolerated with CAM boot on. You do not need to sleep in the boot. - Please take medications as prescribed. - Please rest, ice behind the right knee, and elevate the right foot above the level of your chest to assist with pain or swelling. Diet: advance to your usual diet Print Language: [place]i Patient Instructions: Ankle Arthroscopy (DC) Discharge Date/Time: 04/28/24 09:30
--- NOTE | 2024-04-28 09:08 | PM.PN ---
Progress Note: Subjective Subjective Interval history: Patient seen and evaluated at bedside this a.m. resting comfortably. POD #1 s/p right ankle arthroscopic joint debridement DOS 04/27/2024, complicated by intraoperative bronchospasm, tachycardia and EKG changes, admitted for observation. Admits to mild pain in the right ankle controlled with p.o. medications. Denied any acute events overnight denies any other acute lower extremity complaints at time of visit. She denies any constitutional symptoms including fever chills shortness of breath or chest pain / tightness. Exam Narrative Exam Narrative: RLE dressing left CDI. CFT intact to digits. No erythema edema proximal or distal dressing. Compartment soft compressible, no pain with calf or thigh compression. Constitutional Vital Signs, click to edit/add: Last Vital Signs Temp 98.2 F 04/28/24 07:57 Pulse 82 04/28/24 07:57 Resp 12 04/28/24 04:05 BP 139/80 04/28/24 04:05 Pulse Ox 97 04/28/24 04:05 O2 Del Method Room Air 04/28/24 04:05 O2 Flow Rate 3 04/27/24 12:37 Progress Note: Objective Labs Labs: Short CBC 04/27/24 04/28/24 Range/Units 11:30 03:54 WBC 10.4 13.5 H (4.0-11.0) 10^3/uL Hgb 15.0 14.0 (12.0-16.0) g/dL Hct 46.2 42.8 (36.0-48.0) % Plt Count 228 215 (150-450) 10^3/uL BMP 04/27/24 04/28/24 11:30 03:54 Sodium 139 141 Potassium 3.7 3.1 L Chloride 104 106 Carbon Dioxide 26.0 26.6 BUN 4.0 L 3.0 L Creatinine 0.60 0.60 Glucose 117 H 91 Calcium 8.1 L 8.2 L Liver Function 04/27/24 04/28/24 Range/Units 11:30 03:54 Total Bilirubin 0.4 0.5 (0.2-1.0) mg/dL AST 23 23 (15-37) U/L ALT 28 23 (14-59) U/L Alkaline Phosphatase 93 88 (46-116) U/L Albumin 2.7 L 2.4 L (3.4-5.0) g/dL Progress Note: A&P Assessment and Plan (1) Acute bronchospasm: (2) Abnormal EKG: (3) Tobacco abuse: (4) Seasonal allergies: Plan Patient examined evaluated. All Findings discussed with patient all questions answered to patients satisfaction. Pertinent labs and imaging reviewed. Mild leukocytosis likely postsurgical in nature. No acute events overnight. Cardiac workup negative thus far. Right lower extremity dressing to be left CDI until follow-up. Weightbearing as tolerated right lower extremity with Cam boot Postop prescription sent to patient's pharmacy on file. Stable to discharge from podiatry's perspective with 1 week follow-up. Rest per primary, please call questions or concerns.
--- NOTE | 2024-04-28 12:06 | CM.NOTE ---
Rounds made with Dr. Alvarez, pt has already been discharged to home. YOSELYN Escalona had seen pt this AM.
== END 2024-04-28 23:00 | disposition home or self-care (01) ==
PROVIDERS: Anesthesiology; Family Medicine; Admitting Provider Podiatrist Foot & Ankle Surgery; Visit Provider Podiatrist Foot & Ankle Surgery
PROC: (CPT 1464; principal; 2024-04-27 10:00)
DX: M25.871 Other specified joint disorders, right ankle and foot (principal); M19.071 Primary osteoarthritis, right ankle and foot; M87.871 Other osteonecrosis, right ankle; F17.290 Nicotine dependence, other tobacco product, uncomplicated; J30.2 Other seasonal allergic rhinitis; J98.01 Acute bronchospasm; R94.31 Abnormal electrocardiogram [ECG] [EKG]; Z96.661 Presence of right artificial ankle joint; R00.0 Tachycardia, unspecified; E87.6 Hypokalemia; D72.829 Elevated white blood cell count, unspecified
CPT/HCPCS: 29897; 36415; 71045; 80053; 80061; 82948; 83036; 83880; 84443; 84484; 85025; 93005; 93306; J0330; J0665; J0690; J1100; J1650; J1805; J1885; J2250; J2405; J2704; J3010

== ENCOUNTER 2024-06-07 10:47 | Outpatient (OUT) | payer OTHER, SELFPAY ==
--- NOTE | 2024-06-07 | XR_ITS ---
[address] [address] Patient Name: IAM ROQUE MRN: [id number] date: 1975 Sex: F Assigned Patient Location: Current Patient Location: Accession/Order Number: [id number] Exam Date: 06/07/2024 10:48 Report Date: 06/07/2024 12:57 At the request of: BRIAN BRANNON Procedure: XR ankle RT min 3V PROCEDURE: XR ankle RT min 3V COMPARISON: 03/05/2024 HISTORY: RIGHT ANKLE PAIN FINDINGS: BONES:Stable talus replacement. No acute fracture, dislocation or mechanical failure. SOFT TISSUES:Negative. No visible soft tissue swelling. EFFUSION:Small joint effusion OTHER: Vascular calcification XR/XR ankle RT min 3V IMPRESSION: Stable talus replacement Electronically authenticated by: STEVEN THOMSON Date: 06/07/2024 12:57
== END 2024-06-07 10:48 | disposition home or self-care (01) ==
LOC: EC 10:47
PROVIDERS: Visit Provider Podiatrist Foot & Ankle Surgery
DX: M25.571 Pain in right ankle and joints of right foot (principal); Z96.661 Presence of right artificial ankle joint
CPT/HCPCS: 73610

== ENCOUNTER 2024-11-15 10:12 | Outpatient (OUT) | payer OTHER, SELFPAY ==
--- NOTE | 2024-11-15 10:17 | XR_ITS ---
The [address] [address] Patient Name: IAM ROQUE MRN: [id number] date: 1975 Sex: F Assigned Patient Location: [facility] Current Patient Location: Accession/Order Number: [id number] Exam Date: 11/15/2024 10:22 Report Date: 11/16/2024 05:41 At the request of: BRIAN BRANNON Procedure: XR ankle RT min 3V PROCEDURE: XR ankle RT min 3V HISTORY: Avascular Necrosis Of Right Talus COMPARISON: XR ankle right 06/07/2024 FINDINGS: BONES:Prosthetic replacement of the talus without evidence of hardware fracture or loosening. No bone fracture dislocation. SOFT TISSUES:Mild soft tissue swelling surrounding the ankle. EFFUSION:None visible. OTHER: Negative. XR/XR ankle RT min 3V IMPRESSION: 1. Stable surgical changes without evidence of hardware failure or change in alignment. Electronically authenticated by: SCOOBY JIMÉNEZ Date: 11/16/2024 05:41
--- OUTSIDE RECORDS SUMMARY | 2024-11-15 10:29 | XMS_ITS | CCD ---
Author Organization [facility] Care Team Providers Care Bumper Machine Operator Name Role Phone None, No PCP Unavailable [...] TINO, DR SCOOBY De Jesus Consulting Unavailable RBIAN BRANNON Consulting Unavailable BRIAN BRANNON Procedure Practitioner [...] Care Unavailable JEAN CLAUDE LOPEZ Referring Unavailable JESSICAJEAN CLAUDE TURNER Referring Unavailable KOLE, NICKIE Primary Care Unavailable JESSICAJEAN CLAUDE Referring Unavailable KOLE, NICKIE Primary Care Unavailable JESSICAJEAN CLAUDE Referring Unavailable KOLE, NICKIE Primary Care Unavailable JESSICA, JEAN CLAUDE DE LEÓN Referring Unavailable KOLE, NICKIE Primary Care Unavailable KOLE, NICKIE Primary Care Unavailable JEAN CLAUDE LOPEZ Referring Unavailable KOLE, NICKIE Primary Care Unavailable JEAN CLAUDE LOPEZ Referring Unavailable KOLE, NICKIE Primary Care Unavailable JEAN CLAUDE LOPEZ Referring Unavailable KOLE, NICKIE Primary Care Unavailable JEAN CLAUDE LOPEZ Referring Unavailable Nickie Mortensen MD Primary Care Provider [phone] Medications Completed/Discontinued Medications Medication Drug Class(es) Dates [...] 04-13-2023 Chronic Other aftercare (1 source) 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 Lissy Valera Basophils/100 WBC (Bld) 0.8 % Normal 0.2-2.0 [facility] Comment on above: Performed By: #### C BC #### [facility] [address] [address] [address] Lissy Valera EO # 0.4 103/ul Normal 0.0-0.7 [facility] Comment on above: Performed By: #### C BC #### [facility] [address] [place] [address] Dr. Lissy Valera Eosinophils/100 WBC (Bld) 5.0 % Normal 0.9-7.0 [facility] Comment on above: Performed By: #### C BC #### [facility] [address] [place] [address] Dr. Lissy Valera Erythrocyte distribution width (RBC) [Ratio] 12.5 % Normal 11.0-15.0 [facility] Comment on above: Performed By: #### C BC #### [facility] [address] [place] [address] Dr. Lissy Valera Hematocrit (Bld) [Volume fraction] 40.3 % Normal 36.0-48.0 [facility] Comment on above: Performed By: #### C BC #### [facility] [address] [place] [address] Dr. Lissy Valera Hemoglobin (Bld) [Mass/Vol] 13.1 g/dL Normal 12.0-16.0 [facility] Comment on above: Performed By: #### C BC #### [facility] [address] [place] [address] Dr. Lissy Valera IG # 0.03 10e3/ul Normal 0.00-0.03 [facility] Comment on above: Performed By: #### C BC #### [facility] [address] [place] [address] Dr. Lissy Valera IG % 0.4 % Normal 0.0-0.5 [facility] Comment on above: Performed By: #### C BC #### [facility] [address] [place] [address] Dr. Lissy Valera LYMPH # 3.0 103/ul Normal 1.2-3.8 [facility] Comment on above: Performed By: #### C BC #### [facility] [address] [place] [address] Dr. Lissy Valera Lymphocytes/100 WBC (Bld) 36.2 % Normal 20.5-60.0 [facility] Comment on above: Performed By: #### C BC #### [facility] [address] [place] [address] Dr. Lissy Valera MANUAL DIFF REQ NO Normal [facility] Comment on above: Performed By: #### C BC #### [facility] [address] [place] [address] Dr. Lissy Valera MCH (RBC) [Entitic mass] 33.2 pg Normal 26.7-34.0 [facility] Comment on above: Performed By: #### C BC #### [facility] [address] [place] [address] Dr. Lissy Valera MCHC (RBC) [Mass/Vol] 32.5 g/dL Normal 29.9-35.2 [facility] Comment on above: Performed By: #### C BC #### [facility] [address] [address] [address] Lissy Valera MCV (RBC) [Entitic vol] 102.3 fL Critically high 81.0-99.0 [facility] Comment on above: Performed By: #### C BC #### [facility] [id number] Lissy Valera MONO # 0.8 103/ul Normal 0.3-0.8 [facility] Comment on above: Performed By: #### C BC #### [facility] [address] [address] [address] Lissy Valera Monocytes/100 WBC (Bld) 9.7 % Normal 1.7-12.0 [facility] Comment on above: Performed By: #### C BC #### [facility] [address] [address] [address] Lissy Valera NEUT # 4.0 103/ul Normal 1.4-6.5 [facility] Comment on above: Performed By: #### C BC #### [facility] [address] [address] [address] Lissy Valera Neutrophils/100 WBC (Bld) 47.9 % Normal 43.0-75.0 [facility] Comment on above: Performed By: #### C BC #### [facility] [address] [address] [address] Lissy Valera Platelet mean volume (Bld) [Entitic vol] 9.4 fL Critically low 9.5-13.5 [facility] Comment on above: Performed By: #### C BC #### [facility] [address] [place] [address] Dr. Lissy Valera PLT 270 103/ul Normal 150-450 [facility] Comment on above: Performed By: #### C BC #### [facility] [id number] Lissy Valera RBC 3.94 106/ul Critically low 4.20-5.40 [facility] Comment on above: Performed By: #### C BC #### [facility] [address] [address] [address] Lissy Valera WBC 8.3 103/ul Normal 4.0-11.0 [facility] Comment on above: Performed By: #### C BC #### [facility] [address] [address] [address] Lissy Valera POINT OF CARE GLUCOSEon 05-0 Glucose [Mass/Vol] 137 mg/dL Critically high 74-106 [facility] Comment on above: Performed By: #### P OCGLUC ####[facility] [address] [address]Dr. Lissy Valera Glucose [Mass/Vol] 110 mg/dL Critically high -106 [facility] Comment on above: Performed By: #### P OCGLUC ####[facility] [address] [address]Dr. Lissy Valera CBC AUTO DIFFon 03-23-2023 BASO # 0.1 103/ul Normal 0.0-0.1 [facility] Comment on above: Performed By: #### C BC #### [facility] [address] [place] [address] Dr. Lissy Valera Basophils/100 WBC (Bld) 0.8 % Normal 0.2-2.0 [facility] Comment on above: Performed By: #### C BC #### [facility] [address] [place] [address] Dr. Lissy Valera EO # 0.3 103/ul Normal 0.0-0.7 [facility] Comment on above: Performed By: #### C BC #### [facility] [address] [place] [address] Dr. Lissy Valera Eosinophils/100 WBC (Bld) 3.6 % Normal 0.9-7.0 [facility] Comment on above: Performed By: #### C BC #### [facility] [address] [place] [address] Dr. Lissy Valear Erythrocyte distribution width (RBC) [Ratio] 12.8 % Normal 11.0-15.0 [facility] Comment on above: Performed By: #### C BC #### [facility] [address] [place] [address] Dr. Lissy Valera Hematocrit (Bld) [Volume fraction] 41.0 % Normal 36.0-48.0 [facility] Comment on above: Performed By: #### C BC #### [facility] [address] [place] [address] Dr. Lissy Valera Hemoglobin (Bld) [Mass/Vol] 13.5 g/dL Normal 12.0-16.0 [facility] Comment on above: Performed By: #### C BC #### [facility] [address] [place] [address] Dr. Lissy Valera IG # 0.04 10e3/ul Critically high 0.00-0.03 [facility] Comment on above: Performed By: #### C BC #### [facility] [address] [place] [address] Dr. Lissy Valera IG % 0.4 % Normal 0.0-0.5 [facility] Comment on above: Performed By: #### C BC #### [facility] [address] [place] [address] Dr. Lissy Valera LYMPH # 2.4 103/ul Normal 1.2-3.8 [facility] Comment on above: Performed By: #### C BC #### [facility] [address] [place] [address] Dr. Lissy Valera Lymphocytes/100 WBC (Bld) 26.5 % Normal 20.5-60.0 [facility] Comment on above: Performed By: #### C BC #### [facility] [address] [place] [address] Dr. Lissy Valera MANUAL DIFF REQ NO Normal [facility] Comment on above: Performed By: #### C BC #### [facility] [address] [place] [address] Dr. Lissy Valera MCH (RBC) [Entitic mass] 33.5 pg Normal 26.7-34.0 [facility] Comment on above: Performed By: #### C BC #### [facility] [address] [place] [address] Dr. Lissy Valera MCHC (RBC) [Mass/Vol] 32.9 g/dL Normal 29.9-35.2 [facility] Comment on above: Performed By: #### C BC #### [facility] [address] [place] [address] Dr. Lissy Valera MCV (RBC) [Entitic vol] 101.7 fL Critically high 81.0-99.0 [facility] Comment on above: Performed By: #### C BC #### [facility] [address] [place] [address] Dr. Lissy Valera MONO # 0.8 103/ul Normal 0.3-0.8 [facility] Comment on above: Performed By: #### C BC #### [facility] [address] [place] [address] Dr. Lissy Valera Monocytes/100 WBC (Bld) 8.4 % Normal 1.7-12.0 [facility] Comment on above: Performed By: #### C BC #### [facility] [address] [place] [address] Dr. Lissy aVlera NEUT # 5.4 103/ul Normal 1.4-6.5 [facility] Comment on above: Performed By: #### C BC #### [facility] [address] [place] [address] Dr. Lissy Valera Neutrophils/100 WBC (Bld) 60.3 % Normal 43.0-75.0 [facility] Comment on above: Performed By: #### C BC #### [facility] [address] [place] [address] Dr. Lissy Valera Platelet mean volume (Bld) [Entitic vol] 9.3 fL Critically low 9.5-13.5 [facility] Comment on above: Performed By: #### C BC #### [facility] [address] [place] [address] Dr. Lissy Valera PLT 295 103/ul Normal 150-450 [facility] Comment on above: Performed By: #### C BC #### [facility] [address] [place] [address] Dr. Lissy Valera RBC 4.03 106/ul Critically low 4.20-5.40 [facility] Comment on above: Performed By: #### C BC #### [facility] [address] [address] [address] Lissy Valera WBC 8.9 103/ul Normal 4.0-11.0 [facility] Comment on above: Performed By: #### C BC #### [facility] [address] [address] [address] Lissy Valera PROF CHEM 8 (BAS METB)on Anion gap [Moles/Vol] 12.7 mmol/L Normal [facility] Comment on above: Performed By: #### B MP ####[facility] [address] [address]DrEmelyn Valera Calcium [Mass/Vol] 9.7 mg/dL Normal 8.5-10.1 [facility] Comment on above: Performed By: #### B MP ####[facility] [address] [address]DrEmelyn Valera Chloride [Moles/Vol] 103 mmol/L Normal 98-107 [facility] Comment on above: Performed By: #### B MP ####[facility] [address] [address]DrEmelyn Valera CO2 [Moles/Vol] 27.5 mmol/L Normal 21.0-32.0 [facility] Comment on above: Performed By: #### B MP ####[facility] [address] [address]DrEmelyn Valera Creatinine [Mass/Vol] 0.66 mg/dL Normal 0.55-1.02 [facility] Comment on above: Performed By: #### B MP ####[facility] [address] [address]DrEmelyn Valera EGFR-AF HAITIAN >60 Normal >=60 [facility] Comment on above: Performed By: #### B MP ####[facility] [address] [place], [place] [address]DrEmelyn Valera EGFR-NON AF HAITIAN >60 Normal >=60 [facility] Comment on above: Performed By: #### B MP ####[facility] [address] [id number]. Lissy Valera Glucose [Mass/Vol] 98 mg/dL Normal 74-106 [facility] Comment on above: Performed By: #### B MP ####[facility] [address] [id number]. Lissy Soto Potassium [Moles/Vol] 4.2 mmol/L Normal 3.5-5.1 [facility] Comment on above: Performed By: #### B MP ####[facility] [address] [address]Dr. Lissy Soto Sodium [Moles/Vol] 139 mmol/L Normal 136-145 [facility] Comment on above: Performed By: #### B MP ####[facility] [address] [id number]. Lissy Soto Urea nitrogen [Mass/Vol] 15.0 mg/dL Normal 7.0-18.0 [facility] Comment on above: Performed By: #### B MP ####[facility] [address] [id number]. Lissy Soto Urea nitrogen/Creatinin e [Mass ratio] 22.7 mg/mg Normal [facility] Comment on above: Performed By: #### B MP ####[facility] [address] [id number]. Lissy Valera XR CHEST 2 Von 03-23-2023 XR CHEST 2 V EXAMINATION: XR CHES T 2 V, 03/23/2023 10:30 AM EDT HISTORY: Electronic cigarette user COMPARISON: None. TECHNIQUE: Chest x-ray: Two views. FINDINGS: No focal consolidations or pleural effusions. Cardiomediastinal silhouette is unremarkable. Visualized osseous structures are unremarkable. IMPRESSION: No acute disease. Electronically authenticated by: STUART BIRMINGHAM Date: 2023-03-23 11:19 Normal [facility] CT ANKLE LT WO CONon 023 CT [...] STEVEN THOMSON Date: 2023-02-10 10:29 Normal [facility] XR ANKLE TONY MIN 3 VIEWSon 0 [...] SCOOBY JIMÉNEZ Date: 2023-01-21 10:22 Normal [facility] MRI ANKLE RIGHT WO CONTRASTo n 01-08-2023 Avascular necrosis involving the majority of the talus with comminuted intra-articular fracture involving the tibiotalar joint and posterior subtalar joint. Additional findings as detailed. RECOMMENDATIONS: [facility] RADIOLOGY EXAMINATION: MRI OF THE RIGHT ANKLE [...] due to disuse osteopenia or altered biomechanics. [facility] RADIOLOGY Nawaf Villanueva DO - 01/08/2023 EXAMINATION: [...] joint. Additional findings as detailed. RECOMMENDATIONS: Unavailable [employer] Phone: MRI ANKLE RIGHT WO CONTRASTO rdered By: Nawaf Villanueva on 01-08-2023 [employer] Phone: MRI ANKLE RIGHT WO CONTRASTo n [...] Nawaf Villanueva DO 01/08/23 Final result Normal [facility] Radiology Study observation (narrative) [facility] Work Phone: Radiologyon 01-06-2023 MR Ankle - right WO contrast Normal -[facility] Work Phone: Initial Visit (Orthopaedic S urgery)on [...] or Bone Graft Simulator, Implanted Breast Tissue Accounting Clerk, Glucose Monitor, or Neulasta Device? : No [...] and MRI reports from previous evaluation in [place]. 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 Discussed option of referral to the [facility] if she wants to discuss total [...] Recorded: 28Dec2022 02:57PM Height5 ft 2 in Icwrvg396 lb BMI Ahegmsqrfb83.53 kg/m2 BSA Calculated1.72 Results/Data Xray Ankle 3 [id number] 08:56AMVish Penny Test NameResultFlagReference Xray Ankle 3 View(Report) FINAL REPORT Interpreted by: VISH PENNY JAMES, MD 12/09/22 09:37 Patient Name: DINORA NAVA STUDY: ANKLE, COMPLETE, MIN 3 VIEWS; Right; 12/09/2022 8:56 am INDICATION: pain M25.579: Ankle pain. ACCESSION NUMBER(S): [id number] ORDERING CLINICIAN: VISH PENNY FINDINGS: AP lateral oblique views of the right ankle show moderate to severe degenerative change throughout the ankle joint with talar collapse noted on lateral view. Questionable AVN as well. (more content not included)... Normal [facility] ANKLE, COMPLETE, MIN 3 VIEWS on 12-09-2022 ANKLE, COMPLETE, MIN 3 VIEWS Patient Name: DINORA NAVA STUDY: ANKLE, COMPLETE, MIN 3 VIEWS; Right; 12/09/2022 8:56 am INDICATION: pain M25.579: Ankle pain. ACCESSION NUMBER(S): [id number] ORDERING CLINICIAN: VISH PENNY FINDINGS: AP lateral oblique views of the right ankle show moderate to severe degenerative change throughout the ankle joint with talar collapse noted on lateral view. Questionable AVN as well. Bone spurring throughout the ankle joint including posteriorly is evident. Electronically signed by: VISH PENNY MD Normal [facility] Initial Visit (Orthopaedic S urgery)on 12-09-2022 Initial [...] answered today with the patient. 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 Signatures Electronically signed by : Barbie Pro, ; Dec 10 2022 3:52PM EST (Plate Cutter/Recorder ) Electronically signed by : Vish Penny MD; Dec 11 2022 11:44AM EST Normal [facility] 12-09-2022 XR Ankle 3 Views [facility] Work Phone: Vital Signs Date Time Vital Sign Value Performing Clinician Pavithra minaya 12-28-2022 14:57-0500 Body height 157.48 cm No PCP None -[facility] Work Phone: 12-28-2022 14:57-0500 Body mass index (BMI) [Ratio] 28.53 kg/m2 No PCP None [facility] Work Phone: 12-28-2022 14:57-0500 Body surface area Derived from formula 1.72 m2 No PCP None -[facility] Work Phone: 12-28-2022 14:57-0500 Body weight 70.76 kg No PCP None [facility] Work Phone: Encounters Encounter Date Encounter Type Care Provider Facility Start: 08-13-2023 End: 08-13-2023 Subsequent hospital visit by physician Cancellation Jasbir Benavides [facility] Comment on above: Canceled (Patient) Start: 08-13-2023 ambulatory NICKIE KOLE [facility] Start: 07-12-2023 End: 07-13-2023 ambulatory NICKIE KOLE [facility] Start: 07-09-2023 End: 07-10-2023 ambulatory NICKIE KOLE [facility] Start: 07-02-2023 End: 07-03-2023 ambulatory NICKIE KOLE [facility] Start: 06-29-2023 End: 06-30-2023 ambulatory NICKIE KOLE [facility] Start: 06-25-2023 End: 06-26-2023 ambulatory [facility]IE KOLE [facility] Start: 06-18-2023 End: 06-19-2023 ambulatory JEAN CLAUDE SARTHAK LOPEZ [facility] Start: 06-14-2023 End: 06-15-2023 ambulatory JEAN CLAUDE SARTHAK LOPEZ [facility] Start: 06-07-2023 End: 06-08-2023 ambulatory JEAN CLAUDE SARTHAK LOPEZ [facility] Start: 06-02-2023 End: 06-03-2023 ambulatory JEAN CLADUE SARTHAK LOPEZ [facility] Start: 05-25-2023 End: 05-26-2023 ambulatory NICKIE KOLE [facility] Start: 04-27-2023 End: 04-28-[address] SCOOBY JIMÉNEZ Facility:[facility]1 Start: 04-05-2023 End: 04-07-2023 Evaluation and management of inpatient DR CLINTON COFFEY . Facility:[facility] Start: 03-27-2023 Encounter for other preprocedural examination [facility] Start: 03-27-2023 Encounter for preprocedural cardiovascular examination [facility] Start: 03-27-2023 Encounter for preprocedural laboratory examination [facility] Start: 03-27-2023 Encounter for preprocedural respiratory examination BRIAN BRANNON [facility] Start: 03-23-2023 End: 03-24-2023 ambulatory BRIAN BRANNON Facility:[facility] Start: 03-23-2023 End: 03-24-2023 Encounter for preprocedural laboratory examination [facility] Start: 02-10-2023 End: 02-11-[address] STEVEN THOMSON Facility:[facility] Start: 01-20-2023 End: 01-21-2023 ambulatory [facility]AN Snow [facility] Start: 01-08-2023 Chart Update No PCP None [facility] Work Phone: Start: 01-06-2023 End: 01-09-2023 ambulatory SARTHAK HERNANDEZ [facility] Start: 01-06-2023 End: 01-08-2023 Subsequent hospital visit by physician Tyson Fuentes Mri Room 1 [facility] MRI Comment on above: Idiopathic avascular necrosis (HCC) Start: 12-28-2022 Office outpatient ne w 45 minutes No PCP None -[facility] Work Phone: Start: 12-28-[address] [id number] Start: 12-09-2022 Office outpatient ne w 30 minutes No PCP None [facility] Work Phone: Start: 12-09-2022 Patient encounter procedure No PCP None [facility] Work Phone: Start: 12-09-[address] Vish Penny Fac lity:[id number] Procedures Date Procedure Procedure Detail Performing Clinician [...] 06-29-2023 Influenza vaccination Flu vaccine (# 1) [facility] Start: 12-28-2022 NPV, Provider: Sarthak Hernandez, Status: Pen, Time: 1:45 PM NPV, Provider: Sarthak Hernandez, Status: Pen, Time: 1:45 [facility] Work Phone: Start: 06-29-2022 Influenza vaccination Flu vaccine (# 1) [facility] Start: 2019 Screening for malign ant neoplasm of colon [facility] Start: 2014 Lipid panel Lipids [facility] Start: 2004 Screening for malign ant neoplasm of cervix [facility] Start: 1995 Screening for malign ant neoplasm of cervix Pap smear [facility] Start: 1993 DTaP/Tdap/Td vaccine (1 - Tdap) DTaP/Tdap/Td vaccine (1 - Tdap) [facility] Start: 1992 Hepatitis C screening Hepatitis C sc reen [facility] Start: 1989 HIV screening HIV screen [facility] Start: 1986 Depression Screen Depression Screen [facility] Start: 1974 COVID-19 Vaccine (#1) COVID-19 Vacci ne (#1) [facility] Start: 1974 Hepatitis B vaccine (1 of 3 - 3-dose series) Hepatitis B vaccine (1 of 3 - 3-dose series) [facility] Payers Date Payer Category Payer Unknown [id number] [id number] 1974 Unknown [id number] 2.16.8 40.1.013623.3.579.2.1068 1974 Unknown [id number] 2.16. 840.1.122565.3.579.2.356 1974 Unknown [id number] 2.16.84 0.1.281091.3.579.2.593 1974 Unknown [id number] 2.16.84 0.1.677321.3.579.2.593 1974 Unknown [id number] 2.16.84 0.1.750860.3.579.2.593 1974 Unknown [id number] 2.16.84 0.1.400557.3.579.2.593 1974 Unknown [id number] 2.16.84 0.1.298009.3.579.2.593 1974 Unknown [id number] 2.16.8 40.1.934771.3.579.2.182 1974 Unknown [id number] 2.16.8 40.1.300049.3.579.2.182 1974 Unknown [id number] 2.16.8 40.1.425927.3.579.2.182 1974 Unknown [id number] 2.16.8 40.1.187271.3.579.2.182 1974 Unknown [id number] 2.16.8 40.1.091498.3.579.2.182 1974 Unknown [id number] 2.16.8 40.1.314691.3.579.2.182 1974 Unknown [id number] 2.16.8 40.1.206907.3.579.2.182 1974 Unknown [id number] 2.16.8 40.1.762977.3.579.2.182 1974 Unknown [id number] 2.16.8 40.1.466810.3.579.2.182 1974 Unknown [id number] 2.16.8 40.1.934792.3.579.2.182 1974 Unknown [id number] 2.16.8 40.1.031014.3.579.2.182 1974 Unknown [id number] 2.16.8 40.1.486383.3.579.2.182 Unknown Unknown [id number] Social History Date Type Detail Facility Start: 03-31-2013 Current every day smoker Current every day smoker [facility] Work Phone: Tobacco smoking stat [facility] Tobacco smoking consumption unknown [facility] Work Phone: Start: 1975 Sex Assigned At Not on file [facility] Work Phone: Start: 03-31-2013 Tobacco use panel [facility] History of Present illness Narrative 08-13-2023 Ghada Fulton, PT - 08/13/2023 8:40 AM EDT Note Date & Type Note Facility 08-13-2023 History of Present illness Narrative [facility] PHYSICAL THERAPY PLAN OF CARE [address] 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 LTG 1 Current Status:: 07/12: DF: -4 deg ; 30 deg ; inv: 14 deg ; ev: 14 deg In progress Shelter Goal 2: Patient will increase strength in right ankle including right hip >/= 4+/5 for improved ambulation. LTG 2 Current Status:: 07/12: 5/5 in ankle and hip; however unable to complete SLS tasks and/or heel raise indicating decreased WBing, strength and stability Partially met, In progress Shelter Goal 3: LEFS >/= 40/80 to demonstrate functional improvements. LTG 3 Current Status:: 07/12: 39/80 In progress Shelter Goal 4: Patient will ambulate independently 150ft [...] Info entered by: documented in this encounter [facility] Clinical Note 04-28-2023 Note Date & [...] by: SCOOBY JIMÉNEZ Date: 2023-04-28 08:45 [facility] Clinical Note 04-05-2023 Note Date & Type [...] authenticated by: SCOOBY JIMÉNEZ Date: 2023-04-05 16:11 [facility] Clinical Note 04-05-2023 Note Date & Type [...] authenticated by: SCOOBY JIMÉNEZ Date: 2023-04-05 16:11 [facility] Clinical Note 04-05-2023 Note Date & Type Note Facility 04-05-2023 Note PROCEDURE: XR ANKLE RT 2V HISTORY: Pain COMPARISON: XR ankle bilateral 01/20/2023 FINDINGS: BONES:Multiple intraoperative spot fluoroscopic images demonstrate removal of quinault talus and subsequent replacement with custom anesthetic talus. SOFT TISSUES:Expected intraoperative findings. IMPRESSION: 1. Intraoperative prosthetic replacement of the talus. Electronically authenticated by: SCOOBY JIMÉNEZ Date: 2023-04-05 16:09 [facility] History of Present illness Narrative 12-29-2021 Note Date & Type Note Facility 12-29-2021 History of Present illness Narrative 47 female here for right ankle pain. Longstanding issue of pain in the right ankle. Has old notes and MRI reports from previous evaluation in [place]. 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 Is increasing pain and swelling during the day. No diabetes. Non-smoker. Has had increased pain over the past year.On exam:WD/WN thin femaleA+O [id number] lymphedemaInspection of both feet and ankles show [...] recovery. Discussed option of referral to the [facility] if she wants to discuss total talus replacement. [facility] Work Phone: Evaluation note Note Date & Type Note Facility Evaluation note Diagnosis Idiopathic avascular necrosis (HCC) Aseptic necrosis of bone, site unspecified documented in this encounter [facility] Work Phone: History of Present illness Narrative [...] is here today as a new patient. [facility] Work Phone: History of Present illness [...] is here today as a new patient. 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 * XRAYS TODAY Right ankle* TOWER ATTENDANT RT ANKLE * XRAYS TODAY Summary Purpose [...] RIGHT WO CONTRAST Sarthak Hernandez MD [address] [place] [address] [place] [address] Referral ID Status Reason Start Date Expiration Date Visits Re quested Visits Authorized [id number] Closed 01/05/2023 02/04/2023 1 1 Additional Source Comments INFORMATION SOURCE (unrecogn ized section and content) DATE CREATED AUTHOR 12/22/2022 [facility] DATE CREATED AUTHOR AUTHOR'S ORGANIZ ATION 12/28/2022 [facility] DATE CREATED AUTHOR AUTHOR'S ORGANIZ ATION 12/29/2022 [facility] DATE CREATED AUTHOR AUTHOR'S ORGANIZ ATION 05/07/2023 [facility] DATE CREATED AUTHOR AUTHOR'S ORGANIZ ATION 08/13/2023 [facility] Reason for Visit (unrecogniz ed section and content) Specialty Diagnoses / Procedures Referred By Contac t Referred To Contact Radiology Diagnoses Idiopathic avascular necrosis (HCC) Procedures MRI ANKLE RIGHT WO CONTRAST Sarthak Hernandez MD [address] [place] [address] [place] [address] Referral ID Status Reason Start Date Expiration Date Visits Re quested Visits Authorized [id number] Closed 01/05/2023 02/04/2023 1 1 Specialty Diagnoses / Procedures Referred By Contac t Referred To Contact Diagnoses Primary osteoarthritis, right ankle and foot Contracture, right ankle [facility] [address] [place] [address] [facility] [address] [place] [address] Referral ID Status Reason Start Date Expiration Date Visits Re quested Visits Authorized [id number] 1 1 Care Teams (unrecognized sec tion and content) 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 [facility] [employer] [facility]. provides no warranty or guarantee of the accuracy or completeness of information in this document.
== END 2024-11-15 10:13 | disposition home or self-care (01) ==
LOC: RAD 10:12
PROVIDERS: Visit Provider Podiatrist Foot & Ankle Surgery
DX: M87.071 Idiopathic aseptic necrosis of right ankle (principal); Z96.661 Presence of right artificial ankle joint
CPT/HCPCS: 73610